=== PATIENT | male | born 1990 | race Caucasian/White ===

== ENCOUNTER 2022-01-20 20:37 | Emergency (ER) | payer OTHER, SELFPAY ==
[2022-01-20 20:50] VITALS: BP 126/85; PULSE 84; RESP 16; TEMP 36.4; O2SAT 98; BMI 24.4
[2022-01-20 21:56] VITALS: BP 119/72; PULSE 79; RESP 16; TEMP 36.4; O2SAT 98
--- NOTE | 2022-01-21 09:56 | ED.WOUNDLAC ---
HPI - Wound/Laceration General Date Seen: 01/21/22 Chief Complaint: Laceration/Wound Stated Complaint: LEFT EYE INJURY,HOCKEY PUCK Time Seen by Provider: 01/20/22 20:49 Source: patient and old records reviewed Mode of arrival: ambulatory Limitations: no limitations History of Present Illness HPI narrative: Patient is a 28-year-old gentleman presents with a significant other after he took a hockey puck to just above his left eye. He has no problems seeing out of his eye, but there is a laceration within his eyebrow. He was not wearing a shield, but tells me he usually wears a shield when he plays hockey. He feels that he might need stitches and that is why he is here today. Immunizations are up-to-date. Onset (ago): minute(s) (30) Location: face Place: other Patient tetanus UTD: Yes Context: accidental Associated symptoms: none Related Data Home Medications Medication Instructions Recorded Confirmed No Known Home Medications 01/20/22 01/20/22 Allergies Allergy/AdvReac Type Severity Reaction Status Date / Time No Known Drug Allergies Allergy Verified 01/20/22 20:53 Review of Systems Status of ROS: Reports: 6 or more systems reviewed and unremarkable except as noted in History and below [facility] Medical History (Updated 01/20/22 @ 21:45 by Erick Cooney MD) No significant past medical history Surgical History (Updated 01/20/22 @ 21:27 by Senthil Mahajan RN) No significant past surgical history Social History Smoking Status: Never smoker Do you use any of these nicotine containing products: None How often do you have a drink containing alcohol: never How often do you have six or more drinks on one occasion: Never AUDIT-C Alcohol total score: 0 Non-prescribed substance use: marijuana (any form) Exam Narrative: Exam Narrative: Healthy-looking gentleman in no apparent distress there is a vertical laceration of approximately 1 in that is gaping through the medial part of his left eyebrow. It does not continue into his upper eyelid. Some mild swelling is noted here. His nasal bone is intact. And straight. There is no evidence of any blood in either naris. No septal hematoma, his extraocular muscles are normal. Fundi appear normal his pupils are equal round reactive to light. Mid facial region reveals no tenderness to palpation. His neck is supple full range of motion is noted. Const: Vital Signs, click to edit/add: Vital Signs - 24 hr 01/20/22 20:50 01/20/22 21:56 Temperature 97.6 F 97.6 F Pulse Rate [Right Pulse Oximeter] 84 79 Respiratory Rate 16 16 Blood Pressure [Ri ght Upper Arm] 126/85 119/72 Pulse Oximetry 98 98 Course Vital Signs Vital signs: Initial Vital Signs Temperature 97.6 F 01/20/22 20:50 Temperature Source Temporal Artery Scan 01/20/22 20:50 Pulse Rate 84 01/20/22 20:50 Respiratory Rate 16 01/20/22 20:50 Blood Pressure 126/85 01/20/22 20:50 Blood Pressure Mean 98 01/20/22 20:50 Blood Pressure Position Sitting 01/20/22 20:50 Pulse Oximetry 98 01/20/22 20:50 Oxygen Delivery Method 01/20/22 20:50 Vital Signs Temperature 97.6 F 01/20/22 20:50 Pulse Rate 84 01/20/22 20:50 Respiratory Rate 16 01/20/22 20:50 Blood Pressure 126/85 01/20/22 20:50 Pulse Oximetry 98 01/20/22 20:50 Temperature 97.6 F 01/20/22 21:56 Pulse Rate 79 01/20/22 21:56 Respiratory Rate 16 01/20/22 21:56 Blood Pressure 119/72 01/20/22 21:56 Pulse Oximetry 98 01/20/22 21:56 MDM - Wound/Laceration MDM Narrative Medical decision making narrative: Laceration is repaired to the satisfaction on viewing of the significant other. We talked about bacitracin on the wound signs and symptoms infection and follow up if these occur. Sutures should come out in 6 days. I did talk to them about taking them out themselves. [facility]. Differential Diagnosis Differential diagnosis: Likely laceration and avulsion of skin Medical Records Attestation: I reviewed the patient's medical records. Discharge Plan Discharge Clinical Impression: Laceration Patient Disposition: Home w/ Parent or Adult Condition: Improved Instructions: Head Laceration (ED) Additional Instructions: Home rest daily bacitracin on the wound, signs of infection such as swelling, redness, fevers chills, he should come back to the ER. Otherwise sutures should come out in 6 days. I showed you had do this if you guys feel uncomfortable you go to the primary care clinic and have this done. Showering is encouraged but no swimming in the river or [place] Activity Level: No Restrictions Prescriptions: No Action No Known Home Medications 0RF Follow Up/Referrals: Provider,Not a Local [Primary Care Provider] - Stand Alone Forms: [facility] Info Instructions Procedures Laceration Laceration 1: Verification/time out: correct patient, correct site and correct procedure Name of person performing procedure: Erick Cooney Site: face Side (If applicable): left Size (cm): 3 Description: linear Depth: simple, single layer Local Anesthetic: lidocaine 1% and with epi Pre-repair: wound explored, irrigated extensively and deep structures intact Skin layer closed with: nylon Size (cm): 4-0 Number of sutures: 2 Technique: simple, interrupted Wound cleansing: soap Estimated blood loss (if any): none Conclusion: patient tolerated procedure
== END 2022-01-20 21:58 | disposition home or self-care (01) ==
PROVIDERS: Emergency Provider Family Medicine
DX: S01.112A Laceration without foreign body of left eyelid and periocular area, initial encounter (principal); W21.220A Struck by ice hockey puck, initial encounter
CPT/HCPCS: 12011; 99283

== ENCOUNTER 2023-07-26 14:48 | Outpatient (CLI) | payer OTHER, SELFPAY | END 2023-07-26 14:49 | disposition home or self-care (01) | PROVIDERS: PCP Family Medicine; Visit Provider Family Medicine | DX: M54.50 Low back pain, unspecified (principal); M51.27 Other intervertebral disc displacement, lumbosacral region; M47.897 Other spondylosis, lumbosacral region; M51.36 Other intervertebral disc degeneration, lumbar region; M54.17 Radiculopathy, lumbosacral region | CPT/HCPCS: 64483; J1100; Q9966 ==

== ENCOUNTER 2023-07-28 09:02 | Outpatient (CLI) | payer OTHER, SELFPAY ==
--- NOTE | 2023-07-28 09:15 | CRLHL7_ITS ---
For Patients: As a result of the Century Cures Act, medical imaging exams and procedure reports are released immediately into your electronic medical record. You may view this report before your referring provider. If you have questions, please contact your health care provider. INDICATION: Low back pain. TECHNIQUE : Lumbar spine MRI without contrast. The following sequences were obtained: Sagittal T1, T2 weighted and STIR sequences. Axial T1 and T2 weighted sequences. COMPARISON: Lumbar spine MRI from 09/21/2021. FINDINGS : Five lumbar type vertebral bodies, with the last fully formed disc space designated as L5-S1. Normal lumbar lordotic curve. No recent compression fracture or marrow replacing process. Lower cord/conus signal is normal. The conus terminates at a normal location. No intradural lesion. No extraspinal soft tissue abnormalities. Discs/Endplates: Mild disc height loss and disc desiccation L4-5 and L5-S1. Small Schmorl`s node deformities at L5 superior and inferior endplates. Remaining discs exhibit normal height and signal. Findings at individual levels as follows: T11-12: No spinal canal or neural foraminal stenosis. T12-L1: No spinal canal or neural foraminal stenosis. L1-2: No spinal canal or neural foraminal stenosis. L2-3: No spinal canal or neural foraminal stenosis. L3-4: No spinal canal or neural foraminal stenosis. L4-5: Minimal posterior disc bulge. No spinal canal or neural foraminal stenosis. L5-S1: A 13 millimeter right subarticular disc extrusion with 13 millimeters caudal migration below the interspace frankly impinges the traversing right S1 nerve root, compressing it against the posterior lateral wall of the spinal canal. Underlying mild disc bulge with contact of the left S1 nerve root. Mild right and [id number] left neural foraminal stenosis. Imaged SI joints: Within normal limits. Imaged sacrum: Within normal limits. IMPRESSION: 1. At L5-S1, a new right subarticular disc extrusion with caudal migration below the interspace frankly impinges the traversing right S1 nerve root. 2. Scattered spondylosis elsewhere without significant spinal canal/neural foraminal stenosis or impingement of neural structures. 3. No intradural pathology. Lower cord/conus and cauda equina nerve roots are normal. Dictated by German Mcwilliams MD @ 07/28/2023 10:59:06 AM (Electronically Signed)
== END 2023-07-28 09:03 | disposition home or self-care (01) ==
LOC: MRI 09:05
PROVIDERS: PCP Family Medicine; Visit Provider Family Medicine
DX: M54.50 Low back pain, unspecified (principal); M51.27 Other intervertebral disc displacement, lumbosacral region; M47.896 Other spondylosis, lumbar region; M51.26 Other intervertebral disc displacement, lumbar region; M54.16 Radiculopathy, lumbar region
CPT/HCPCS: 72148

== ENCOUNTER 2023-11-08 05:59 | Emergency (ER) | payer OTHER, SELFPAY ==
[2023-11-08 06:06] VITALS: BP 151/87; PULSE 75; RESP 18; TEMP 36.4; O2SAT 99; BMI 24.4
--- NOTE | 2023-11-08 06:12 | ED.BACK ---
HPI - Back Pain/Injury General Time Seen by Provider: 06:13 Date Seen: 11/08/23 Chief Complaint: Back Injury/Pain Stated Complaint: lower back pain Time Seen by Provider: 11/08/23 06:12 Source: patient Mode of arrival: ambulatory Limitations: no limitations History of Present Illness HPI Narrative: Ko is a very pleasant 33-year-old gentleman with a known history of back pain otherwise healthy who comes to the emergency room for evaluation of increasing back pain. Patient notes that he has dealt with back pain for years. He has previously seen Dr. Cooeny in the back clinic and had an MRI in July. He notes last night he picked up a door in the garage. It did not feel quite right and after that he has had increasing back pain throughout the night. Notes pain is radiating into his right buttock and down the back of his right leg and numbness is going into his calf. Initially a nursing reported that he had lost control of his bladder but in talking to the patient he had not gotten up to use the restroom all night because of the pain and when he had ago this morning he ?barely made it to the toilet?. He has not had loss of bowel. He denies numbness of the per perineal area. His most comfortable position is lying on his back with his knees flexed. Movement greatly increases his pain. He has taken oxycodone and ibuprofen at home. This has not helped. Naseem is supposed to be seeing Dr. Cooney in the back clinic on November 09. Denies fevers chills, allergy to Percocet is listed. States he got itchy in the hospital been when taking this. Notes that he is able to take oxycodone or Tylenol alone however. Last week completed of Medrol Dosepak. Related Data Previous Rx's Medication Instructions Recorded diazepam 5 mg tablet (Valium) 5 mg PO ONCE #2 tabs 07/21/23 gabapentin 300 mg capsule 300 mg PO TID #90 caps 07/21/23 methylprednisolone 4 mg tablets in See Rx Instructions PO PER PKG DIR 10/25/23 a dose pack #21 ea cyclobenzaprine 10 mg tablet 10 mg PO TID PRN muscle spasm #20 11/08/23 tabs hydrocodone 5 mg-acetaminophen 325 See Rx Instructions .Route 11/08/23 mg tablet .COMPLEX PRN pain #14 tabs methylprednisolone 4 mg tablets in See Rx Instructions PO .COMPLEX 11/08/23 a dose pack (Medrol (Geovanny)) #21 ea Allergies Allergy/AdvReac Type Severity Reaction Status Date / Time acetaminophen [From Percocet] Allergy Verified 07/26/23 15:09 oxycodone [From Percocet] Allergy Verified 07/26/23 15:09 Review of Systems Status of ROS: Reports: 10 or more systems reviewed and unremarkable except as noted in History and below [facility] Medical History Protrusion of lumbar intervertebral disc ?M51.26 - Other intervertebral disc displacement, lumbar region (ICD-10) No significant past medical history Surgical History No significant past surgical history Social History Smoking Status: Never smoker Do you use any of these nicotine containing products: None How often do you have a drink containing alcohol: never How often do you have six or more drinks on one occasion: Never AUDIT-C Alcohol total score: 0 Non-prescribed substance use: marijuana (any form) Exam Narrative: Exam Narrative: Naseem is examined in room 1. He is very tearful. Mentating normally. Speech is normal. Heart with a regular rate and rhythm and lungs are clear bilaterally. He has movement of the lower extremities in terms of great toe Mart and plantar flexion. DTRs at the knees 1+. At this time he is so uncomfortable that further exam is not possible. Const: Vital Signs, click to edit/add: Vital Signs - 24 hr 11/08/23 06:06 Temperature 97.6 F Pulse Rate [Pulse Oximeter] 75 Respiratory Rate 18 Blood Pressure [Ri ght Upper Arm] 151/87 H Pulse Oximetry 99 Oxygen Delivery Me thod Room Air Documenting provider has reviewed patient's vital signs: yes Course Course ED Course: Differential diagnosis includes but is not limited to disc protrusion suspect L5-S1, low back spasm, muscular strain, cauda equina. At this time he does have sensation of the lower extremities, no loss of perineal sensation and has not had loss of bowel or bladder control. While uncomfortable I do not see any red flag symptoms at this time but will need to re-examine patient once his pain is a bit better controlled. I was able to view MRI results from July of 2019 for lumbar spine which does show a right-sided L5-S1 disc protrusion with abutment of the right S1 nerve. At this time will proceed with morphine 10 mg IM, ketorolac 30 mg IM. I did ascertain that patient had an allergy to Percocet but he is able to take oxycodone. Unfortunately I do not think we will control his pain without the use of a narcotic. A check of the [facility] does not appear to show frequent narcotic prescriptions. Reevaluation(s) Reevaluation #1: Patient noted to be able to ambulate to restroom and is feeling much better after morphine and Toradol injection. Re-examination shows no tenderness to the low back. Hip flexion knee extension and flexion ankle in flexion extension all within normal limits. Decreased sensation on the lateral aspect of the right lower leg. Vital Signs Vital signs: Initial Vital Signs Temperature 97.6 F 11/08/23 06:06 Temperature Source Temporal Artery Scan 11/08/23 06:06 Pulse Rate 75 11/08/23 06:06 Respiratory Rate 18 11/08/23 06:06 Blood Pressure 151/87 H 11/08/23 06:06 Blood Pressure Mean 108 H 11/08/23 06:06 Blood Pressure Position Supine 11/08/23 06:06 Pulse Oximetry 99 11/08/23 06:06 Oxygen Delivery Method Room Air 11/08/23 06:06 Vital Signs Temperature 97.6 F 11/08/23 06:06 Pulse Rate 75 11/08/23 06:06 Respiratory Rate 18 11/08/23 06:06 Blood Pressure 151/87 H 11/08/23 06:06 Pulse Oximetry 99 11/08/23 06:06 Oxygen Delivery Method Room Air 11/08/23 06:06 Temperature 97.6 F 11/08/23 06:06 Pulse Rate 75 11/08/23 06:06 Respiratory Rate 18 11/08/23 06:06 Blood Pressure 151/87 H 11/08/23 06:06 Pulse Oximetry 99 11/08/23 06:06 Oxygen Delivery Method Room Air 11/08/23 06:06 Medications Administered Medications: Discontinued Medications Generic Name Dose Route Start Last Admin Trade Name Freq PRN Reason Stop Dose Admin Ketorolac Tromethamine 30 mg 05/14/24 06:24 11/08/23 06:32 Ketorolac 30 Mg/Ml Inj IM 11/08/23 06:25 30 mg ONCE ONE Administration Morphine Sulfate 10 mg 11/08/23 06:21 11/08/23 06:32 Morphine 10 Mg/Ml Inj IM 11/08/23 06:22 10 mg ONCE ONE Administration MDM - Back Pain/Injury MDM Narrative Medical decision making narrative: 1. L5-S1 disc protrusion with radiculitis-patient noted to have no deficit in strength motor. Sensation deficit on the lateral aspect of the right lower leg. At this time I am able to re-examine. No red flag symptoms at this time. Patient is feeling better. Do not feel that we need to repeat an MRI as this is likely an exacerbation of pre-existing lumbar disc extrusion abutting on the right S1 nerve root. Will restart Medrol Dosepak. Have also given patient prescription for Flexeril 10 mg p.o. t.i.d. p.r.n. 20. With no refills. Finally hand written prescription for [place] 5/325 1-2 tabs p.o. q.6 hours p.r.n. 14. With no refills. Previous prescription sent to [facility]. Patient is to return for loss of bowel or bladder control, worsening symptoms and as needed. Suggested use of stool softener as medications will likely make him constipated. 2. Disposition- home at this time with his mother. Anseem states he does feel comfortable going home. Have suggested icing in lieu of heat. Light activity only. Follow-up with back care physician in 48 hours as previously scheduled. Medical Records Attestation: I reviewed the patient's medical records. Imaging Data Lumbar MRI: Attestation: I have reviewed the pertinent imaging results. Radiologist's impression: Five lumbar type vertebral bodies, with the last fully formed disc space designated as L5-S1. Normal lumbar lordotic curve. No recent compression fracture or marrow replacing process. Lower cord/conus signal is normal. The conus terminates at a normal location. No intradural lesion. No extraspinal soft tissue abnormalities. Discs/Endplates: Mild disc height loss and disc desiccation L4-5 and L5-S1. Small Schmorl`s node deformities at L5 superior and inferior endplates. Remaining discs exhibit normal height and signal. Findings at individual levels as follows: T11-12: No spinal canal or neural foraminal stenosis. T12-L1: No spinal canal or neural foraminal stenosis. L1-2: No spinal canal or neural foraminal stenosis. L2-3: No spinal canal or neural foraminal stenosis. L3-4: No spinal canal or neural foraminal stenosis. L4-5: Minimal posterior disc bulge. No spinal canal or neural foraminal stenosis. L5-S1: A 13 millimeter right subarticular disc extrusion with 13 millimeters caudal migration below the interspace frankly impinges the traversing right S1 nerve root, compressing it against the posterior lateral wall of the spinal canal. Underlying mild disc bulge with contact of the left S1 nerve root. Mild right and [id number] left neural foraminal stenosis. Imaged SI joints: Within normal limits. Imaged sacrum: Within normal limits. IMPRESSION: 1. At L5-S1, a new right subarticular disc extrusion with caudal migration below the interspace frankly impinges the traversing right S1 nerve root. 2. Scattered spondylosis elsewhere without significant spinal canal/neural foraminal stenosis or impingement of neural structures. 3. No intradural pathology. Lower cord/conus and cauda equina nerve roots are normal. Discharge Plan Discharge Clinical Impression: Right lumbar radiculitis, Protrusion of lumbar intervertebral disc Patient Disposition: Home w/ Parent or Adult Condition: Improved Additional Instructions: Restart 2nd Medrol Dosepak which is sent to [facility] For discomfort Vicodin also known as hydrocodone may be used. Please use this sparingly, do not drive if using, and use a stool softener as this will probably cause constipation Flexeril is a muscle relaxant if your experiencing spasms. It is also sedating and should not be used if driving. Follow-up on as scheduled with Dr. Cooney Return to the emergency room for loss of bowel or bladder control, worsening symptoms and as needed. Prescriptions: New cyclobenzaprine 10 mg tablet 10 mg PO TID PRN (Reason: muscle spasm) Qty: 20 0RF hydrocodone-acetaminophen 5-325 mg tablet See Rx Instructions .ROUTE .COMPLEX PRN (Reason: pain) Qty: 14 0RF Rx Instructions: May use 1-2 tabs every 6 hours as needed for discomfort. methylprednisolone [Medrol (Geovanny)] 4 mg tablets,dose pack See Rx Instructions .ROUTE .COMPLEX Qty: 21 0RF Rx Instructions: for 6 days No Action diazepam [Valium] 5 mg tablet 5 mg PO ONCE Qty: 2 0RF Rx Instructions: Take 1 tablet a half hour prior to MRI. May repeat x1. Patient will need goat driver to/from MRI. gabapentin 300 mg capsule 300 mg PO TID Qty: 90 2RF Rx Instructions: Star with 1 capsule at night, increase in 3 days to 1 capsule morning and night, and then in 3 more days increase to 3 times a day. Sedation is the 1. Side effect, but this can also make you slightly dizzy. Safe to take with Tylenol and ibuprofen. methylprednisolone 4 mg tablets,dose pack See Rx Instructions PO PER PKG DIR Qty: 21 0RF Rx Instructions: PO PER PKG DIR Follow Up/Referrals: Nuno Sherman MD [Primary Care Provider] - Stand Alone Forms: [facility] Info Instructions
[2023-11-08] MEDS: MORPHINE 10 MG/ML inj IM (06:32)
[2023-11-08] MEDS: KETOROLAC 30 MG/ML inj IM (06:32)
[2023-11-08 08:08] VITALS: BP 150/80; PULSE 68; RESP 18; O2SAT 99
== END 2023-11-08 08:10 | disposition home or self-care (01) ==
PROVIDERS: Emergency Provider Family Medicine; PCP Family Medicine
DX: M54.16 Radiculopathy, lumbar region (principal); M51.26 Other intervertebral disc displacement, lumbar region
CPT/HCPCS: 96372; 99284; J1885; J2270

== ENCOUNTER 2024-01-20 14:06 | Outpatient (CLI) | payer OTHER, SELFPAY ==
--- NOTE | 2024-01-20 14:30 | CRLHL7_ITS ---
For Patients: As a result of the Century Cures Act, medical imaging exams and procedure reports are released immediately into your electronic medical record. You may view this report before your referring provider. If you have questions, please contact your health care provider. INDICATION: Lumbar stenosis. COMPARISON: 07/28/2023. TECHNIQUE: Sagittal T1, T2, and STIR sequences. Axial T1 and T2 weighted sequences. FINDINGS: Normal vertebral body alignment. No fractures. No vertebral body loss of height. No spondylolisthesis. No ligament injury. No suspicious osseous lesions. Normal conus terminates at L2. T12-L1 L1-2 L2-3: No spinal canal neural foraminal narrowing. L3-4: No spinal canal or neural foraminal narrowing. L4-5: Mild disc degeneration and posterior disc bulge. No narrowing of spinal canal. No neural foraminal narrowing. L5-S1: Disc degeneration and loss disc height. Posterior disc bulge. Compared to the previous exam, interval decrease in size of a right paracentral disc extrusion which canal measures approximately 4 mm in diameter with 4 mm of caudal migration (best appreciated on series 2, image 7). The extruded disc again contacts and may irritate the traversing right S1 nerve root. No impingement of the traversing left S1 nerve root. Facet arthropathy results in mild to moderate narrowing of bilateral foramina. Normal visualized SI joints. IMPRESSION: 1. Normal alignment. No fractures. 2. Lumbar spondylosis 3. At L5-S1, disc degeneration. Posterior disc bulge. Interval decrease in size of a previously noted right paracentral disc extrusion. Contact and possible irritation of the traversing right S1 nerve root. Etdp-ri-[id number] narrowing of the bilateral neural foramina. 4. No spinal canal or neural foraminal narrowing at the remaining levels Dictated by Nikolai Renee MD @ 01/21/2024 2:55:55 PM (Electronically Signed)
== END 2024-01-20 14:07 | disposition home or self-care (01) ==
LOC: MRI 14:07
PROVIDERS: PCP Family Medicine; Visit Provider Orthopaedic Surgery Orthopaedic Surgery of the Spine
DX: M48.062 Spinal stenosis, lumbar region with neurogenic claudication (principal); M51.37 Other intervertebral disc degeneration, lumbosacral region
CPT/HCPCS: 72148

== ENCOUNTER 2024-02-26 11:42 | Emergency (ER) | payer OTHER, SELFPAY ==
--- NOTE | 2024-02-26 11:43 | ED.GENADULT ---
HPI - General Adult General Date Seen: 02/26/24 Chief complaint: Back Injury/Pain Stated complaint: Back pain following surgery Time Seen by Provider: 02/26/24 11:43 History of Present Illness HPI narrative: 34-year-old male with history of chronic back pain and S1 lumbar radiculopathy. He had an MRI of his lumbar spine in 2021 that showed an L5-S1 disc extrusion with impingement on the right S1 nerve root. He had had some ongoing pain and radicular symptoms. He follows with Dr. Cooney in the spine clinic. According to his most recent visit from the Spine Clinic in October he had had an epidural steroid injection last winter with temporary improvement. He had then been in the ER in October with a significant flare of back pain and radicular pain. According to [facility] is a notes from October, they were going to refer to Spine surgery, Dr. Naseem Briceno (O). He indicates that he underwent back surgery on February 08, just over 2 weeks ago. The surgery was performed at by Dr. Briceno from [facility]. It sounds like it was a small micro diskectomy. He had been healing well. He received a prescription for about 10 tablets of oxycodone for postop pain in the been doing well. He did take all of his oxycodone in the 1st few days after surgery but has been doing well since then and not needing any other pain killers. He had also been on gabapentin for several months for his nerve related pain preoperatively but also does not have that anymore. He had been feeling better but on Tuesday he tripped and sneezed and his back pain is flaring up since then. He had called his surgeon's office on Tuesday when he 1st re-injured his back. His surgeon and surgical team wore out of the office and he was told to call back on Tuesday if he was still having pain. This morning he was having a bowel movement (passages of stool was normal, no rectal pain, no incontinence) and after stooling he twisted to clean his bottom with toilet paper and in the active twisting her sick created a significant flare of pain. He is having pain in his low back that radiates down his right buttock, right posterior hamstring all way down into his right calf and right foot. He does have some chronic mild numbness affecting the 4th and 5th toes on the right foot, that even had been persistent since surgery, but now is entire right foot is feeling numb. No fever or chills. No bleeding from his incision. No redness or swelling around his incision . Urination has been normal. Related Data Previous Rx's ?Medication ?Instructions ?Recorded diazepam 5 mg tablet (Valium) 5 mg PO ONCE #2 tabs 07/21/23 hydrocodone 5 mg-acetaminophen 325 See Rx Instructions .Route 11/08/23 mg tablet .COMPLEX PRN pain #14 tabs methylprednisolone 4 mg tablets in See Rx Instructions PO .COMPLEX 11/08/23 a dose pack (Medrol (Geovanny)) #21 ea gabapentin 300 mg capsule 300 mg PO TID #90 caps 11/10/23 cyclobenzaprine 10 mg tablet 10 mg PO TID PRN muscle spasm #20 12/01/23 tabs methylprednisolone 4 mg tablets in See Rx Instructions PO PER PKG DIR 12/01/23 a dose pack #21 ea gabapentin 300 mg capsule 300 mg PO BID #14 caps 02/26/24 methylprednisolone 4 mg tablets in See Rx Instructions PO .COMPLEX 02/26/24 a dose pack (Medrol (Geovanny)) #21 ea oxycodone 5 mg capsule 5 - 10 mg (1 - 2 x 5 mg) PO Q6H 02/26/24 PRN pain #14 caps oxycodone 5 mg tablet 5 - 10 mg (1 - 2 x 5 mg) PO Q6H 02/26/24 PRN pain #20 tabs PFSH PFSH Medical History Protrusion of lumbar intervertebral disc ?M51.26 - Other intervertebral disc displacement, lumbar region (ICD-10) No significant past medical history Surgical History No significant past surgical history Social History Smoking Status: Never smoker Do you use any of these nicotine containing products: None How often do you have a drink containing alcohol: never How often do you have six or more drinks on one occasion: Never AUDIT-C Alcohol total score: 0 Non-prescribed substance use: marijuana (any form) Exam Narrative: Exam Narrative: Constitutional: Appears well-developed and well-nourished. Alert. Uncomfortable and is standing at his bedside because that is his position of greatest comfort. When standing he often bends forward and sometimes tries to bend his right knee to try to relieve his back pain and right leg pain. He is leaning on his cane for balance. He is uncomfortable but nontoxic HENT: Head: Atraumatic. Nose: Nose normal. Mouth/Throat: Oral mucosa is clear and moist. no trismus. Eyes: Conjunctivae normal. EOM normal. Pupils equal, round, and reactive to light. No scleral icterus. Neck: Normal range of motion. Neck supple. No tracheal deviation present. Cardiovascular: Normal rate, regular rhythm. No gallop. No friction rub. No murmur heard. Symmetric DP artery pulses Pulmonary/Chest: Effort normal. No stridor. No respiratory distress. No wheezes. No rales. No rhonchi . Abdominal: Soft.No distension. No mass. No tenderness. No rebound. No guarding. Musculoskeletal: Inspection of low back is normal. He does have a healing incision with Steri-Strips in place. No signs of any purulent drainage, bleeding. No surrounding erythema. No point tenderness or swelling in that area. No midline step-off or crepitus of the lumbar spine and no pelvic crepitus or tenderness. RUE: Normal range of motion. No tenderness. No deformity LUE: Normal range of motion. No tenderness. No deformity RLE: Normal range of motion. No edema. No tenderness. No deformity LLE: Normal range of motion. No edema. No tenderness. No deformity Lymph: No signs of redness in the leg or any signs of ascending lymphangitis or infection. Neurological: Alert and oriented to person, place, and time. Normal strength. CN II-VII intact. No sensory deficit. GCS eye subscore is 4. GCS verbal subscore is 5. GCS motor subscore is 6. Normal coordination Sensory: Normal light touch sensation bilaterally on the anteromedial thigh (L3), medial malleolus (L4). . He does have paresthesias involving the right dorsal 1st webspace and lateral malleolus. Strength: 5/5 strength hip flexors (L3) on the right and left 5/5 strength in the quadriceps (L4) on the right and left 5/5 strength in the tibialis anterior 5/5 strength in the EHL (L5) on the right and left 5/5 strength in the gastrocnemius (S1) on the right and left 5/5 strength in the hamstring on the right and left He is too uncomfortable to participate in straight leg raise He is able to ambulate. He has his cane in his hand but is able to ambulate without using it for balance. No footdrop.. Skin: Skin is warm and dry. No rash noted. No pallor. Normal capillary refill. Psychiatric: Normal mood. Normal affect. Const: Vital Signs, click to edit/add: Vital Signs - 24 hr 02/26/24 11:45 02/26/24 13:34 Temperature 97.8 F Pulse Rate [Right Pulse Oximeter] 96 83 Respiratory Rate 18 Blood Pressure [Ri ght Upper Arm] 161/78 H 143/88 H Pulse Oximetry 97 95 Oxygen Delivery Me thod Room Air Room Air Course Course ED Course: Recheck-1:10 p.m.. Still uncomfortable. Says slight improvement after initial round of meds but still is leaning on his cane next to the bed. Was not comfortable laying down. Needs additional analgesia. Airway and breathing are patent. Mental status normal. Additional Dilaudid ordered. Vital Signs Vital signs: Initial Vital Signs Temperature 97.8 F 02/26/24 11:45 Temperature Source Temporal Artery Scan 02/26/24 11:45 Pulse Rate 96 02/26/24 11:45 Respiratory Rate 18 02/26/24 11:45 Blood Pressure 161/78 H 02/26/24 11:45 Blood Pressure Mean 105 02/26/24 11:45 Blood Pressure Position Sitting 02/26/24 11:45 Pulse Oximetry 97 02/26/24 11:45 Oxygen Delivery Method Room Air 02/26/24 11:45 Vital Signs Temperature 97.8 F 02/26/24 11:45 Pulse Rate 96 02/26/24 11:45 Respiratory Rate 18 02/26/24 11:45 Blood Pressure 161/78 H 02/26/24 11:45 Pulse Oximetry 97 02/26/24 11:45 Oxygen Delivery Method Room Air 02/26/24 11:45 Temperature 97.8 F 02/26/24 11:45 Pulse Rate 83 02/26/24 13:34 Respiratory Rate 18 02/26/24 11:45 Blood Pressure 143/88 H 02/26/24 13:34 Pulse Oximetry 95 02/26/24 13:34 Oxygen Delivery Method Room Air 02/26/24 13:34 Medications Administered Medications: Discontinued Medications Generic Name Dose Route Start Last Admin Trade Name Ulises PRN Reason Stop Dose Admin Gabapentin 300 mg 02/26/24 12:09 02/26/24 12:43 Gabapentin 300 Mg Capsule PO 02/26/24 12:10 300 mg ONCE ONE Administration Hydromorphone HCl 1 mg 02/26/24 12:08 02/26/24 12:33 Hydromorphone 0.5 Mg/0.5 Ml Inj IVP 02/26/24 12:09 1 mg ONCE ONE Administration Hydromorphone HCl 1 mg 02/26/24 13:20 02/26/24 13:26 Hydromorphone 0.5 Mg/0.5 Ml Inj IVP 02/26/24 13:21 1 mg ONCE ONE Administration Methylprednisolone Sodium Succinate 125 mg 02/26/24 12:08 02/26/24 12:28 Methylprednisolone Sod Succ 62.5 Mg/Ml (125) IVP 02/26/24 12:09 125 mg ONCE ONE Administration Ondansetron HCl 4 mg 02/26/24 12:08 02/26/24 12:20 Ondansetron 2 Mg/Ml Inj IVP 02/26/24 12:09 4 mg ONCE ONE Administration Medical Decision Making MDM Narrative Medical decision making narrative: This patient presented with back pain radiating down his right leg associated with numbness in his right foot. He has a longstanding history of a known L5-S1 disc herniation with impingement on the right S1 nerve root. He does have some chronic numbness in his foot from that. He had been dealing with the pain for quite some time before finally having surgery (done by Dr. Briceno from [facility] at [facility] about 2 weeks ago). He had been healing well but then re-injured his back when he tripped 2 days ago and then further re-injured it this morning when he was twisting his torso on the toilet. Broad differential considered. The patient did not sustain any trauma, therefore x-rays are not necessary due to the low likelihood of fracture or subluxation. I am concerned that he probably has re-exacerbate is healing disc and has symptoms of lumbar radiculopathy going down his right leg. The patient has not had a fever, saddle/perineal anesthesia, bilateral foot numbness, or bowel or bladder dysfunction. There is no clinical evidence of cauda equina syndrome, discitis, spinal/epidural space hematoma or epidural abscess. He may need a expeditious MRI to re-evaluate the anatomy and find of the situation. MRI is not available here in the ER at [facility] this weekend. At this point I do not think this is a neuro surgical emergency requiring transfer to a different hospital for immediate neuro imaging. However he will need close follow-up with his spine surgeon, by Tuesday. Pain has improved with interventions in the emergency department. The patient will be discharged with pain medications to use as directed. Ice or heat to the back and stretching exercises. No heavy lifting, bending or twisting. Return if increasing pain, numbness, weakness, or bowel or bladder dysfunction. The patient was advised to schedule follow-up with their primary doctor within 2-3 days to re-assess symptoms. Return precautions reviewed and questions answered. Prescriptions for gabapentin and oxycodone. Opiate and sedation precautions reviewed. We initially sent his prescriptions to [facility] (listed this is chosen pharmacy in the computer) but he actually wanted him to go to [facility]. I sent a separate prescription for oxycodone to [facility]. He has other at [facility] were called in and change by verbal order. Discharge Plan Discharge Clinical Impression: Lumbosacral radiculopathy at S1 Patient Disposition: Home, Self-Care Condition: Stable Instructions: Lumbar Radiculopathy (ED) Additional Instructions: As we discussed, please follow-up with your back surgeon or the back clinic by Tuesday for recheck. If you have worsening symptoms this weekend such as worsening numbness or weakness in your leg, inability to urinate or disturbance of bladder or bowel function, high fever, redness or swelling around your incision, or any concerns come back to the ER right away. Use the steroid (Medrol Dosepak) for the next few days to try to help this heal. Use the gabapentin hand pain killers if needed. Use caution with these medications because they do cause dizziness, drowsiness, constipation, and can be addictive. Do not drive for 6 hours after taking pain killers. Prescriptions: New oxycodone 5 mg capsule 5 - 10 mg PO Q6H PRN (Reason: pain) Qty: 14 0RF gabapentin 300 mg capsule 300 mg PO BID Qty: 14 0RF methylprednisolone [Medrol (Geovanny)] 4 mg tablets,dose pack See Rx Instructions .ROUTE .COMPLEX Qty: 21 0RF Rx Instructions: for 6 days oxycodone 5 mg tablet 5 - 10 mg PO Q6H PRN (Reason: pain) Qty: 20 0RF No Action diazepam [Valium] 5 mg tablet 5 mg PO ONCE Qty: 2 0RF Rx Instructions: Take 1 tablet a half hour prior to MRI. May repeat x1. Patient will need vibratory pile driver to/from MRI. gabapentin 300 mg capsule 300 mg PO TID Qty: 90 2RF Rx Instructions: Star with 1 capsule at night, increase in 3 days to 1 capsule morning and night, and then in 3 more days increase to 3 times a day. Sedation is the 1. Side effect, but this can also make you slightly dizzy. Safe to take with Tylenol and ibuprofen. hydrocodone-acetaminophen 5-325 mg tablet See Rx Instructions .ROUTE .COMPLEX PRN (Reason: pain) Qty: 14 0RF Rx Instructions: May use 1-2 tabs every 6 hours as needed for discomfort. methylprednisolone [Medrol (Geovanny)] 4 mg tablets,dose pack See Rx Instructions .ROUTE .COMPLEX Qty: 21 0RF Rx Instructions: for 6 days methylprednisolone 4 mg tablets,dose pack See Rx Instructions PO PER PKG DIR Qty: 21 0RF Rx Instructions: PO PER PKG DIR cyclobenzaprine 10 mg tablet 10 mg PO TID PRN (Reason: muscle spasm) Qty: 20 0RF Follow Up/Referrals: Nuno Sherman MD [Staff Physician] - Stand Alone Forms: [employer] Info Instructions
[2024-02-26 11:45] VITALS: BP 161/78; PULSE 96; RESP 18; TEMP 36.6; O2SAT 97; BMI 23.7
[2024-02-26] MEDS: ONDANSETRON 2 MG/ML inj 4 MG IVP (12:20)
[2024-02-26] MEDS: METHYLPREDNISOLONE SOD SUCC 62.5 MG/ML (125) 125 MG IVP (12:28)
[2024-02-26] MEDS: HYDROmorphone 0.5 mg/0.5 ml inj 1 MG IVP ×2 (12:33→13:26)
[2024-02-26] MEDS: GABAPENTIN 300 MG CAPSULE PO (12:43)
[2024-02-26 13:34] VITALS: BP 143/88; PULSE 83; O2SAT 95
== END 2024-02-26 14:18 | disposition home or self-care (01) ==
PROVIDERS: Emergency Provider Emergency Medicine; PCP Nurse Practitioner Family
DX: M54.17 Radiculopathy, lumbosacral region (principal)
CPT/HCPCS: 96374; 96375; 99283; A9270; J1170; J2405; J2919

== ENCOUNTER 2024-02-27 04:11 | Emergency (ER) | payer OTHER, SELFPAY ==
[2024-02-27 04:15] VITALS: BP 134/116; PULSE 120; RESP 18; TEMP 36.8; O2SAT 98; BMI 25.1
--- NOTE | 2024-02-27 04:26 | ED_ITS ---
HPI - General Adult General Chief complaint: Back Injury/Pain Stated complaint: back pain Time Seen by Provider: 02/27/24 04:16 Source: patient and family Mode of arrival: ambulatory Limitations: no limitations History of Present Illness HPI narrative: 34-year-old male presenting today with vomiting. Patient was seen in our ER within the last 24 hours for back pain he was treated with IV Dilaudid and methyl prednisolone. He was sent home with oxycodone and gabapentin. He was also sent home with steroids which he has started since he had an IV dose in the ER. He states that he started vomiting approximately 2 hours ago and every time he has a vomiting episode his back pain is unbearable. He feels sweaty and has hot and cold flashes. He denies any sick contacts, no fevers. He denies any urinary symptoms such as frequency, urgency or dysuria. He denies any diarrhea or constipation. No loss of bowel or bladder function. He has increasing bowls of pain when he vomits otherwise his back pain is unchanged. The no changes in his symptoms of radiculopathy. Patient does have chronic back pain. He had what sounds like a micro diskectomy approximately 2 weeks ago. He denies any swelling or skin changes of his back. Related Data Previous Rx's ?Medication ?Instructions ?Recorded diazepam 5 mg tablet (Valium) 5 mg PO ONCE #2 tabs 07/21/23 hydrocodone 5 mg-acetaminophen 325 See Rx Instructions .Route 11/08/23 mg tablet .COMPLEX PRN pain #14 tabs methylprednisolone 4 mg tablets in See Rx Instructions PO .COMPLEX 11/08/23 a dose pack (Medrol (Geovanny)) #21 ea gabapentin 300 mg capsule 300 mg PO TID #90 caps 11/10/23 cyclobenzaprine 10 mg tablet 10 mg PO TID PRN muscle spasm #20 12/01/23 tabs methylprednisolone 4 mg tablets in See Rx Instructions PO PER PKG DIR 12/01/23 a dose pack #21 ea gabapentin 300 mg capsule 300 mg PO BID #14 caps 02/26/24 methylprednisolone 4 mg tablets in See Rx Instructions PO .COMPLEX 02/26/24 a dose pack (Medrol (Geovanny)) #21 ea oxycodone 5 mg capsule 5 - 10 mg (1 - 2 x 5 mg) PO Q6H 02/26/24 PRN pain #14 caps oxycodone 5 mg tablet 5 - 10 mg (1 - 2 x 5 mg) PO Q6H 02/26/24 PRN pain #20 tabs Allergies Allergy/AdvReac Type Severity Reaction Status Date / Time No Known Drug Allergies Allergy Verified 02/27/24 04:19 Review of Systems Status of ROS: Reports: 10 or more systems reviewed and unremarkable except as noted in History and below PFSH [facility] Medical History Protrusion of lumbar intervertebral disc ?M51.26 - Other intervertebral disc displacement, lumbar region (ICD-10) No significant past medical history Surgical History No significant past surgical history Social History Smoking Status: Never smoker Do you use any of these nicotine containing products: None How often do you have a drink containing alcohol: never How often do you have six or more drinks on one occasion: Never AUDIT-C Alcohol total score: 0 Non-prescribed substance use: marijuana (any form) Exam Narrative: Exam Narrative: Well-nourished well-developed patient, uncomfortable. Alert and oriented. Answers questions appropriately. Mood and affect are appropriate. Thoughts are goal oriented and rational. No tangential or magical thinking noted. Patient speaks in full sentences without needing to catch his breath. HEENT: Normocephalic atraumatic. Pupils are equally round reactive to light. Extraocular muscles are intact. Conjunctivae are moist without any icterus noted. Moist mucous membranes. Cardiovascular: Heart is regular rate and rhythm S1 and S2 are present without any murmurs. Lungs: Clear to auscultation bilaterally no wheezes rhonchi or rales are appreciated. Patient takes deep breaths without any discomfort. Abdomen: Soft and nontender nondistended with normal bowel sounds. No guarding or rebound. No masses or organomegaly appreciated. Extremities: Bilateral lower extremities are without edema. Skin: Well perfused without any obvious rashes. Back has a healing incision without evidence of infection. Const: Vital Signs, click to edit/add: Vital Signs - 24 hr 02/27/24 04:15 02/27/24 05:13 Temperature 98.2 F Pulse Rate [Right Pulse Oximeter] 120 H 80 Respiratory Rate 18 16 Blood Pressure [Ri ght Upper Arm] 134/116 H 129/78 Pulse Oximetry 98 96 Oxygen Delivery Me thod Room Air Room Air Course Course ED Course: I discussed patient's goals today. He states that he would like to stop vomiting and does not want to have any more pain medication at this time. Therefore we did go ahead and start an IV, normal saline was ordered as well as Zofran. Also ordered basic blood work and a COVID test as COVID has been presenting with vomiting recently. Have blood work was unremarkable. White cell count slightly elevated. After being here for approximately 45 minutes patient did not have any vomiting episodes we did request pain medication. Therefore 1 mg of Dilaudid IV was given. Patient was feeling significantly better and ready for discharge. Vital Signs Vital signs: Initial Vital Signs Temperature 98.2 F 02/27/24 04:15 Temperature Source Temporal Artery Scan 02/27/24 04:15 Pulse Rate 120 H 02/27/24 04:15 Pulse Rhythm Regular 02/27/24 04:15 Pulse Strength 3+ Normal 02/27/24 04:15 Respiratory Rate 18 02/27/24 04:15 Blood Pressure 134/116 H 02/27/24 04:15 Blood Pressure Mean 122 H 02/27/24 04:15 Blood Pressure Position Sitting 02/27/24 04:15 Pulse Oximetry 98 02/27/24 04:15 Oxygen Delivery Method Room Air 02/27/24 04:15 Vital Signs Temperature 98.2 F 02/27/24 04:15 Pulse Rate 120 H 02/27/24 04:15 Respiratory Rate 18 02/27/24 04:15 Blood Pressure 134/116 H 02/27/24 04:15 Pulse Oximetry 98 02/27/24 04:15 Oxygen Delivery Method Room Air 02/27/24 04:15 Temperature 98.2 F 02/27/24 04:15 Pulse Rate 80 02/27/24 05:13 Respiratory Rate 16 02/27/24 05:13 Blood Pressure 129/78 02/27/24 05:13 Pulse Oximetry 96 02/27/24 05:13 Oxygen Delivery Method Room Air 02/27/24 05:13 Medications Administered Medications: Generic Name Dose Route Start Last Admin Trade Name Freq PRN Reason Stop Dose Admin Sodium Chloride 1,000 mls @ 1,000 mls/hr 02/27/24 04:30 02/27/24 05:10 0.9 % Sodium Chloride 1000 Ml IV 02/27/24 05:29 Infused .Q1H LUISITO Infusion Discontinued Medications Generic Name Dose Route Start Last Admin Trade Name Ulises PRN Reason Stop Dose Admin Hydromorphone HCl 1 mg 02/27/24 05:02 02/27/24 05:07 Hydromorphone 0.5 Mg/0.5 Ml Inj IVP 02/27/24 05:03 1 mg ONCE ONE Administration Ondansetron HCl 4 mg 02/27/24 04:24 02/27/24 04:33 Ondansetron 2 Mg/Ml Inj IVP 02/27/24 04:25 4 mg ONCE ONE Administration Medical Decision Making MDM Narrative Medical decision making narrative: 34-year-old male with low back pain, vomiting. Patient will continue with his medications that he going to earlier today. We will send home with Lady to take as needed. He will follow up with his care team. Lab Data Lab results reviewed: Yes I reviewed the patient's lab results Labs: Lab Results 02/27/24 Range/Units 04:30 WBC 13.47 H (4.50-11.00) K/uL RBC 4.57 (4.30-5.90) m/uL Hgb 14.1 (13.5-17.5) gm/dL Hct 40.1 (37.0-53.0) % MCV 88 (80-100) fL MCH 31 (26-34) pg MCHC 35 (32-36) gm/dL RDW Coeff of Glenny 11.7 (11.5-15.5) % Plt Count 271 (140-440) K/uL Neut % (Auto) 87.4 H (42.0-72.0) % Lymph % (Auto) 7.9 L (20-44) % Sac % (Auto) 4.2 (0.0-11.0) % Eos % (Auto) 0.1 (0.0-7.0) % Baso % (Auto) 0.0 (0.0-3.0) % Neut # (Auto) 11.80 H (1.7-7.0) K/uL Lymph # (Auto) 1.10 (0.90-2.90) K/uL Sac # (Auto) 0.60 (0.00-0.90) K/UL Eos # (Auto) 0.00 (0.00-0.50) K/uL Baso # (Auto) 0.00 (0.00-0.30) K/uL Abs Immat Gran (auto) 0.10 (0.00-0.30) K/uL Imm/Tot Granulo (auto) 0.4 % Sodium 136 (135-149) mmol/L Potassium 3.8 (3.6-5.1) mmol/L Chloride 102 (96-114) mmol/L Carbon Dioxide 26 (20-32) mmol/L Anion Gap 8 (7-15) mEq/L BUN 16 (5-24) mg/dL Creatinine 0.7 (0.5-1.5) mg/dL Estimated Creat Clear 141.14 Estimated GFR 122 ml/min Glucose 146 H (60-115) mg/dL Calcium 9.7 (8.4-10.6) mg/dL Total Bilirubin 0.6 (0.1-1.5) mg/dL Direct Bilirubin 0.2 (0.0-0.5) mg/dL AST 23 (12-35) U/L ALT 18 (4-50) U/L Alkaline Phosphatase 60 (40-150) U/L Total Protein 7.3 (6.0-8.3) g/dL Albumin 4.7 (3.3-5.0) g/dL SARS-CoV-2 (PCR) Negative SARS-CoV-2 (Negative) Influenza Type A (PCR) Negative PCR FLU A (Negative) Influenza Type B (PCR) Negative PCR FLU B (Negative) Discharge Plan Discharge Clinical Impression: Vomiting, Back pain Patient Disposition: Home, Self-Care Condition: Improved Additional Instructions: [facility] (medication for nausea/vomiting[facility] Follow-up with your surgical team on Tuesday. Return to the ER if you have an inability to urinate, lose bowel function, or develop a fever. Prescriptions: No Action diazepam [Valium] 5 mg tablet 5 mg PO ONCE Qty: 2 0RF Rx Instructions: Take 1 tablet a half hour prior to MRI. May repeat x1. Patient will need dedicated intermodal truck driver to/from MRI. gabapentin 300 mg capsule 300 mg PO TID Qty: 90 2RF Rx Instructions: Star with 1 capsule at night, increase in 3 days to 1 capsule morning and night, and then in 3 more days increase to 3 times a day. Sedation is the 1. Side effect, but this can also make you slightly dizzy. Safe to take with Tylenol and ibuprofen. hydrocodone-acetaminophen 5-325 mg tablet See Rx Instructions .ROUTE .COMPLEX PRN (Reason: pain) Qty: 14 0RF Rx Instructions: May use 1-2 tabs every 6 hours as needed for discomfort. methylprednisolone [Medrol (Geovanny)] 4 mg tablets,dose pack See Rx Instructions .ROUTE .COMPLEX Qty: 21 0RF Rx Instructions: for 6 days oxycodone 5 mg capsule 5 - 10 mg PO Q6H PRN (Reason: pain) Qty: 14 0RF gabapentin 300 mg capsule 300 mg PO BID Qty: 14 0RF methylprednisolone [Medrol (Geovanny)] 4 mg tablets,dose pack See Rx Instructions .ROUTE .COMPLEX Qty: 21 0RF Rx Instructions: for 6 days oxycodone 5 mg tablet 5 - 10 mg PO Q6H PRN (Reason: pain) Qty: 20 0RF methylprednisolone 4 mg tablets,dose pack See Rx Instructions PO PER PKG DIR Qty: 21 0RF Rx Instructions: PO PER PKG DIR cyclobenzaprine 10 mg tablet 10 mg PO TID PRN (Reason: muscle spasm) Qty: 20 0RF Follow Up/Referrals: Dasha Loera, BREA, PARK MAINTENANCE TECHNICIAN [Primary Care Provider] - Stand Alone Forms: My[facility] Info Instructions
[2024-02-27] MEDS: ONDANSETRON 2 MG/ML inj 4 MG IVP (04:33)
[2024-02-27] MEDS: 0.9 % SODIUM CHLORIDE 1000 ml 1,000 ML IV (04:33)
[2024-02-27 04:38] LABS: Eosinophils Percent Auto 0.1 % (0.0-7.0); Hematocrit 40.1 % (37.0-53.0); Hemoglobin* 14.1 gm/dL (13.5-17.5); Immature Granulocytes Pct Auto 0.4 %; Lymphocytes Percent Auto 7.9 % (20-44); Mean Corpuscular HGB Conc 35 gm/dL (32-36); Mean Corpuscular Hemoglobin 31 pg (26-34); Mean Corpuscular Volume 88 fL (80-100); Monocytes Percent Auto 4.2 % (0.0-11.0); Neutrophils Percent Auto 87.4 % (42.0-72.0); Platelet Count* 271 K/uL (140-440); RDW Coefficient of Variation % 11.7 % (11.5-15.5); Red Blood Count 4.57 m/uL (4.30-5.90); White Blood Count* 13.47 K/uL (4.50-11.00)
[2024-02-27 04:39] LABS: Slide Review Reflex No
[2024-02-27 05:00] LABS: Albumin* 4.7 g/dL (3.3-5.0); Chloride* 102 mmol/L (96-114); Sodium* 136 mmol/L (135-149)
[2024-02-27 05:01] LABS: Potassium* 3.8 mmol/L (3.6-5.1)
[2024-02-27 05:03] LABS: Alanine Aminotransferase* 18 U/L (4-50); Alkaline Phosphatase* 60 U/L (40-150); Bilirubin Direct* 0.2 mg/dL (0.0-0.5); Bilirubin Total* 0.6 mg/dL (0.1-1.5); Creatinine* 0.7 mg/dL (0.5-1.5); Est. Creatinine Clearance* 141.14; Estimated Glomerular Filt Rate 122 ml/min; Total Protein* 7.3 g/dL (6.0-8.3)
[2024-02-27 05:04] LABS: Anion Gap 8 mEq/L (7-15); Blood Urea Nitrogen* 16 mg/dL (5-24); Calcium* 9.7 mg/dL (8.4-10.6); Carbon Dioxide* 26 mmol/L (20-32); Glucose* 146 mg/dL (60-115)
[2024-02-27] MEDS: HYDROmorphone 0.5 mg/0.5 ml inj 1 MG IVP (05:07)
[2024-02-27 05:11] LABS: Aspartate Amino Transferase* 23 U/L (12-35)
[2024-02-27 05:13] VITALS: BP 129/78; PULSE 80; RESP 16; O2SAT 96
[2024-02-27 05:14] LABS: PCR FLU A Negative PCR FLU A (Negative); PCR FLU B Negative PCR FLU B (Negative); SARS PCR* Negative SARS-CoV-2 (Negative)
== END 2024-02-27 05:35 | disposition home or self-care (01) ==
PROVIDERS: Emergency Provider Family Medicine; PCP Nurse Practitioner Family
DX: R11.10 Vomiting, unspecified (principal); M54.9 Dorsalgia, unspecified
CPT/HCPCS: 36415; 80048; 80076; 85025; 87631; 96374; 96375; 99283; 99284; J1170; J2405; J7030

== ENCOUNTER 2024-05-02 20:28 | Emergency (ER) | payer OTHER, SELFPAY ==
[2024-05-02 20:35] VITALS: BP 154/84; PULSE 89; RESP 20; TEMP 36.7; O2SAT 99; BMI 23.7
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
[2024-05-02 21:00] VITALS: O2SAT 99
[2024-05-02] MEDS: CYCLOBENZAPRINE HCL 10 MG TABLET PO (21:04)
[2024-05-02] MEDS: HYDROmorphone 0.5 mg/0.5 ml inj 1 MG IM (21:04)
[2024-05-02] MEDS: ONDANSETRON ODT 4 MG TAB PO (21:04)
[2024-05-02] MEDS: OXYCODONE 5 MG TABLET PO (21:57)
[2024-05-02 22:56] VITALS: BP 154/84; PULSE 89; RESP 20; TEMP 36.7
[2024-05-02 22:57] VITALS: BP 132/74; PULSE 84; RESP 20; TEMP 36.7; O2SAT 99
== END 2024-05-02 22:58 | disposition home or self-care (01) ==
PROVIDERS: Emergency Provider Emergency Medicine; PCP Nurse Practitioner Family
DX: M51.17 Intervertebral disc disorders with radiculopathy, lumbosacral region (principal); V49.9XXA Car occupant (driver) (passenger) injured in unspecified traffic accident, initial encounter
CPT/HCPCS: 94761; 96372; 99283; 99284; A9270; J1171

== ENCOUNTER 2024-06-09 14:34 | Emergency (ER) | payer OTHER, SELFPAY ==
[2024-06-09 14:58] VITALS: BP 133/71; PULSE 100; RESP 20; O2SAT 99; BMI 24.4
[2024-06-09] MEDS: 0.9 % SODIUM CHLORIDE 1000 ml 1,000 ML IV ×2 (15:37→16:41)
[2024-06-09] MEDS: ONDANSETRON 2 MG/ML inj 4 MG IVP (15:37)
[2024-06-09 15:38] LABS: Basophils Percent Auto 0.1 % (0.0-3.0); Eosinophils Percent Auto 0.6 % (0.0-7.0); Hematocrit 44.6 % (37.0-53.0); Hemoglobin* 15.3 gm/dL (13.5-17.5); Immature Granulocytes Pct Auto 0.2 %; Lymphocytes Percent Auto 6.2 % (20-44); Mean Corpuscular HGB Conc 34 gm/dL (32-36); Mean Corpuscular Hemoglobin 31 pg (26-34); Mean Corpuscular Volume 89 fL (80-100); Monocytes Percent Auto 5.9 % (0.0-11.0); Platelet Count* 235 K/uL (140-440); RDW Coefficient of Variation % 11.8 % (11.5-15.5); Red Blood Count 5.01 m/uL (4.30-5.90); White Blood Count* 11.95 K/uL (4.50-11.00)
--- NOTE | 2024-06-09 15:39 | ED.GENADULT ---
HPI - General Adult General Chief complaint: Nausea/Vomiting Stated complaint: back surgery yesterday, cannot stop vomiting Time Seen by Provider: 06/09/24 14:38 History of Present Illness HPI narrative: Patient is a 34-year-old gentleman who had diskectomy for single herniated disc in his lumbar spine yesterday. Today he developed significant nausea and vomiting. The vomiting has not been accompanied by any abdominal pain or pain at his incision site be does have significant diarrhea. He is not on any antibiotics. He has had no fevers no chills no chest pain no shortness a breath orthopnea no PND. No other abdominal pain. Symptoms been present for last 12 hours. Patient feels very dehydrated. Related Data Home Medications ?Medication ?Instructions ?Recorded ?Confirmed gabapentin 300 mg capsule 300 mg PO TID 05/02/24 06/09/24 pregabalin 100 mg capsule 100 mg PO 3XD 06/09/24 06/09/24 Previous Rx's ?Medication ?Instructions ?Recorded methylprednisolone 4 mg tablets in See Rx Instructions PO .COMPLEX 11/08/23 a dose pack (Medrol (Geovanny)) #21 ea methylprednisolone 4 mg tablets in See Rx Instructions PO .COMPLEX 02/26/24 a dose pack (Medrol (Geovanny)) #21 ea oxycodone 5 mg capsule 5 - 10 mg (1 - 2 x 5 mg) PO Q6H 02/26/24 PRN pain #14 caps oxycodone 5 mg tablet 5 - 10 mg (1 - 2 x 5 mg) PO Q6H 02/26/24 PRN pain #20 tabs Allergies Allergy/AdvReac Type Severity Reaction Status Date / Time No Known Drug Allergies Allergy Verified 05/02/24 20:39 Review of Systems Status of ROS: Reports: 10 or more systems reviewed and unremarkable except as noted in History and below [facility] Medical History Protrusion of lumbar intervertebral disc ?M51.26 - Other intervertebral disc displacement, lumbar region (ICD-10) Surgical History No significant past surgical history Social History Smoking Status: Never smoker Do you use any of these nicotine containing products: None Second hand tobacco smoke exposure: No How often do you have a drink containing alcohol: never How often do you have six or more drinks on one occasion: Never AUDIT-C Alcohol total score: 0 Non-prescribed substance use: marijuana (any form) Exam Narrative: Exam Narrative: EXAM GENERAL: Patient appears comfortable and well. EYES: No scleral icterus. ENT: Tympanic membranes and oropharynx normal. THYROID: no thyroid nodules or thyromegaly. LYMPH: No supraclavicular or cervical lymphadenopathy. SKIN: Examination of the lumbar spine shows well-healing well-approximated incision. No signs of cellulitis. EXT: No dependent lower extremity pedal edema. HEART: Regular rate and rhythm with no murmurs, rubs, or gallops. LUNGS: Clear to auscultation bilaterally with no crackles or wheezes. ABD: Soft, non tender, non distended. PSYCH: Good eye contact, speech is not pressured. Const: Vital Signs, click to edit/add: Vital Signs - 24 hr 06/09/24 14:58 Pulse Rate [Pulse Oximeter] 100 Respiratory Rate 20 Blood Pressure [Ri ght Upper Arm] 133/71 Pulse Oximetry 99 Course Course ED Course: Patient presents with nausea and vomiting 1 day postoperative lumbar diskectomy. I did start an IV and gave him 1 L of normal saline 4 mg of Zofran. CBC basic metabolic panel pending. Vital Signs Vital signs: Initial Vital Signs Pulse Rate 100 06/09/24 14:58 Respiratory Rate 20 06/09/24 14:58 Blood Pressure 133/71 06/09/24 14:58 Blood Pressure Mean 91 06/09/24 14:58 Pulse Oximetry 99 06/09/24 14:58 Vital Signs Pulse Rate 100 06/09/24 14:58 Respiratory Rate 20 06/09/24 14:58 Blood Pressure 133/71 06/09/24 14:58 Pulse Oximetry 99 06/09/24 14:58 Pulse Rate 100 06/09/24 14:58 Respiratory Rate 20 06/09/24 14:58 Blood Pressure 133/71 06/09/24 14:58 Pulse Oximetry 99 06/09/24 14:58 Medications Administered Medications: Discontinued Medications Generic Name Dose Route Start Last Admin Trade Name Freq PRN Reason Stop Dose Admin Sodium Chloride 1,000 mls @ 1,000 mls/hr 06/09/24 15:23 12/14/24 16:16 0.9 % Sodium Chloride 1000 Ml IV 06/09/24 16:22 Infused .Q1H LUISITO Infusion Ondansetron HCl 4 mg 06/09/24 15:22 06/09/24 15:37 Ondansetron 2 Mg/Ml Inj IVP 06/09/24 15:23 4 mg ONCE STA Administration Medical Decision Making MDM Narrative Medical decision making narrative: Patient is a 34-year-old gentleman who presents with nausea vomiting diarrhea. Does have slight leukocytosis. He had back surgery yesterday as described above. He appears have gastroenteritis or potentially delayed reaction to the anesthesia. He is given 2 L of normal saline with improvement of his symptoms. I did treated with IV Zofran I did discharge him to home to advance diet activity as tolerated and take Zofran as needed for nausea and vomiting. He will continue his current care for his low back incision and will follow-up with his doctor as scheduled. Lab Data Labs: Lab Results 06/09/24 Range/Units 15:32 WBC 11.95 H (4.50-11.00) K/uL RBC 5.01 (4.30-5.90) m/uL Hgb 15.3 (13.5-17.5) gm/dL Hct 44.6 (37.0-53.0) % MCV 89 (80-100) fL MCH 31 (26-34) pg MCHC 34 (32-36) gm/dL RDW Coeff of Glenny 11.8 (11.5-15.5) % Plt Count 235 (140-440) K/uL Neut % (Auto) 87.0 H (42.0-72.0) % Lymph % (Auto) 6.2 L (20-44) % Chester % (Auto) 5.9 (0.0-11.0) % Eos % (Auto) 0.6 (0.0-7.0) % Baso % (Auto) 0.1 (0.0-3.0) % Neut # (Auto) 10.40 H (1.7-7.0) K/uL Lymph # (Auto) 0.70 L (0.90-2.90) K/uL Chester # (Auto) 0.70 (0.00-0.90) K/UL Eos # (Auto) 0.10 (0.00-0.50) K/uL Baso # (Auto) 0.00 (0.00-0.30) K/uL Abs Immat Gran (auto) 0.00 (0.00-0.30) K/uL Imm/Tot Granulo (auto) 0.2 % Sodium 139 (135-149) mmol/L Potassium 3.6 (3.6-5.1) mmol/L Chloride 108 (96-114) mmol/L Carbon Dioxide 24 (20-32) mmol/L Anion Gap 7 (7-15) mEq/L BUN 12 (5-24) mg/dL Creatinine 0.7 (0.5-1.5) mg/dL Estimated Creat Clear 155.38 Estimated GFR 122 ml/min Glucose 135 H (60-115) mg/dL Calcium 9.1 (8.4-10.6) mg/dL Total Bilirubin 0.6 (0.1-1.5) mg/dL AST 22 (12-35) U/L ALT 20 (4-50) U/L Alkaline Phosphatase 64 (40-150) U/L Total Protein 6.5 (6.0-8.3) g/dL Albumin 4.2 (3.3-5.0) g/dL Lipase 49 (23-300) U/L Discharge Plan Discharge Clinical Impression: Vomiting Patient Disposition: Home, Self-Care Condition: Stable Instructions: Acute Nausea and Vomiting (ED) Additional Instructions: Zofran as directed Tylenol Motrin Ice Advanced diet as tolerated Follow-up as scheduled. Activity Level: No Restrictions Discharge Diet: Regular Prescriptions: No Action methylprednisolone [Medrol (Geovanny)] 4 mg tablets,dose pack See Rx Instructions .ROUTE .COMPLEX Qty: 21 0RF Rx Instructions: for 6 days gabapentin 300 mg capsule 300 mg PO TID pregabalin 100 mg capsule 100 mg PO 3XD oxycodone 5 mg capsule 5 - 10 mg PO Q6H PRN (Reason: pain) Qty: 14 0RF methylprednisolone [Medrol (Geovanny)] 4 mg tablets,dose pack See Rx Instructions .ROUTE .COMPLEX Qty: 21 0RF Rx Instructions: for 6 days oxycodone 5 mg tablet 5 - 10 mg PO Q6H PRN (Reason: pain) Qty: 20 0RF Follow Up/Referrals: Dasha Loera, CAR SCRUBBER, COMPENSATION AND BENEFITS ANALYST [Primary Care Provider] - Stand Alone Forms: MyHealth Info Instructions
[2024-06-09 15:41] LABS: Slide Review Reflex No
[2024-06-09 15:50] LABS: Albumin* 4.2 g/dL (3.3-5.0); Chloride* 108 mmol/L (96-114)
[2024-06-09 15:51] LABS: Potassium* 3.6 mmol/L (3.6-5.1); Sodium* 139 mmol/L (135-149)
[2024-06-09 15:53] LABS: Alkaline Phosphatase* 64 U/L (40-150); Anion Gap 7 mEq/L (7-15); Aspartate Amino Transferase* 22 U/L (12-35); Bilirubin Total* 0.6 mg/dL (0.1-1.5); Blood Urea Nitrogen* 12 mg/dL (5-24); Carbon Dioxide* 24 mmol/L (20-32); Creatinine* 0.7 mg/dL (0.5-1.5); Est. Creatinine Clearance* 155.38; Estimated Glomerular Filt Rate 122 ml/min; Total Protein* 6.5 g/dL (6.0-8.3)
[2024-06-09 15:54] LABS: Alanine Aminotransferase* 20 U/L (4-50); Calcium* 9.1 mg/dL (8.4-10.6); Glucose* 135 mg/dL (60-115); Lipase* 49 U/L (23-300)
== END 2024-06-09 17:12 | disposition home or self-care (01) ==
PROVIDERS: Emergency Provider Internal Medicine; PCP Nurse Practitioner Family
DX: R11.10 Vomiting, unspecified (principal)
CPT/HCPCS: 36415; 80053; 83690; 85025; 96361; 96374; 99283; 99284; J2405; J7030

== ENCOUNTER 2025-01-13 10:18 | Emergency (ER) | payer OTHER, SELFPAY ==
--- OUTSIDE RECORDS SUMMARY | 2025-01-13 10:20 | XMS_ITS | Clinical Summary ---
Author Organization [facility] Address [address] [place] [address] Care Team Providers Care Business Database Analyst Name Role Phone Ignacia Figueroa M.D. Primary Care Provider [phone] Source Comments Patient records contain information from all sites at [facility]. For routine questions regarding patient records, call [phone] during business hours, M-F 8:00 AM - 5:00 PM Central Time. Record requests for emergency care only can be directed to [phone] at any time.[facility] Allergies No known active allergies Medications prazosin (Minipress) 1 mg capsule Take 1 capsule (1 mg total) by mouth at bedtime. 90 capsule 1 4 06/14/20 25 Active cyclobenzaprine (FlexeriL) 10 mg tabletIndication s:Pain Low Back Unspecified Take 1 tablet (10 mg total) by mouth 3 (three) times a day as needed for muscle spasms. 30 tablet 4 Active aluminum chloride (Drysol) 20 % external solution Apply 1 Application topically at bedtime. Apply to armpits. 35 mL 11 5 Active hydrOXYzine (Atarax) 25 mg tablet Take 1 tablet (25 mg total) by mouth every 6 (six) hours as needed for anxiety. 30 tablet 3 5 Active DULoxetine (Cymbalta) [address] capsule Take 1 capsule (60 mg total) by mouth daily. 90 capsule 3 5 Active traZODone (DesyreL) 50 mg tablet Take 1-2 tablets (50-100 mg total) by mouth at bedtime as needed for sleep. 90 tablet 3 5 Active ALPRAZolam (Xanax) 1 mg tablet Take 1-2 tablets 30-60 minutes prior to the procedure. 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 Med Refill from Last 3 Months Immunizations Immunization Administration Dates Next Due Influenza, Seasonal, Injectable 05/03/2012 Tdap 09/30/2012 influenza vaccine quad (FLUZ ONE/FLUARIX) (6 months and older)(PF) 04/17/2015 Family History Relation Name Status Comments Father Alive Mother Alive Sister 1 Alive Sister 2 Alive Social History Tobacco Use Types Packs/Day Years Used Date Smoking Tobacco: Every Day Cigarettes 0.3 15.9 Started: 02/12/2008; Last attempted to quit: 06/07/2022 Passive Smoke Exposure: Current Smokeless Tobacco: Never Tobacco Cessation:Ready to Q uit: Yes; Counseling Given: Yes Alcohol Use Standard Drinks/Week Comments Not Currently 0 (1 standard drink = 0.6 oz pur e alcohol) [facility] Utilities Answer Date Recorded In the past 12 months has [employer], gas, oil, or water [employer] threatened to shut off services in your home? No 05/10/2024 Hunger Vital Sign Answer Date Recorded Within the past 12 months, y ou worried that your food would run out before you got the money to buy more. Never true 05/10/20 24 Within the past 12 months, t he food you bought just didn't last and you didn't have money to get more. Never true 05/10/2024 PRAPARE - Transportation Answer Date Re corded In the past 12 months, has l ack of transportation kept you from medical appointments or from getting medications? No 04/27 In the past 12 months, has l ack of transportation kept you from meetings, work, or from getting things needed for daily living? No 05/10/2024 Depression Answer Date Recor ded PHQ-9 Total Score (max 27) 13 01/04 Housing Stability Answer Date Recorded What is your living situation today? I have a [facility] place to live 05/10/2024 Sex and Gender Information Value Date Recorded Sex Assigned at Male 05/10/2024 10:00 PM FLY MAKER Legal Sex Male 6:08 AM FLY MAKER Gender Identity Male 05/10/2024 10:00 PM FLY MAKER Sexual Orientation Straight 05/10/2024 10 :00 PM FLY MAKER Last Filed Vital Signs Vital Sign Reading Time Taken Comments Blood Pressure 117/72 08/02/2024 11:08 AM FLY MAKER Pulse 99 08/02/2024 11:08 AM FLY MAKER Temperature 36.8 C (98.2 F) 08/02/2024 11:08 AM FLY MAKER Respiratory Rate 20 06/21/2024 8:20 AM FLY MAKER Oxygen Saturation 98% 08/02/2024 11:08 AM FLY MAKER Inhaled Oxygen Concentration - - Weight 78 kg (171 lb 15.3 oz) 07/04/2024 1:59 PM FLY MAKER Height 181.5 cm (5' 11.46) 06/21/2024 8:[address] Body Mass Index 23.68 06/21/2024 8:20 AM FLY MAKER Plan of Treatment Health Maintenance Due Date Last Done Comments HIV Screening 1988 Hepatitis C Screening 1988 Lipid (Cholesterol) Screening 1988 Hepatitis B Vaccines (1 of 3 - 19+ 3-dose series) 02/17/2007 Pneumococcal vaccine (0-49 years) (1 of 2 - PCV) 02/17/2007 HPV Vaccines (1 - 3-dose SCD M series) 02/17/2015 DTaP,Tdap,and Td Vaccines (2 - Td or Tdap) 09/30/2022 09/30/2012 COVID-19 Vaccine ( - 2023-2 5 season) 2024 Influenza Vaccine (#1) 2025 5, 05/03/2012 Depression Monitoring (PHQ-9) 05/07/2025 01/04/2025 Tobacco Cessation counseling 07/27/2025 07/27/2024 Depression Monitoring (PHQ-9 for quality tracking) Completed 08/02/2024, 07/27/2024 IPV Vaccines Aged Out No longer eligi ble based on patient's age to complete this topic Insurance [employer] Care Teams Business Database Analyst Relationship Specialty Start Date End Date Ignacia Figueroa M.D. [address] [place] [phone] PCP - General Family Medicine 07/04/24
--- OUTSIDE RECORDS SUMMARY | 2025-01-13 10:20 | XMS_ITS | Clinical Summary ---
Author Organization [facility] Address [address] [place] [id number] Care Team Providers Care Foot Specialist Name Role Phone Michele Bradshaw MD Unavailable [phone] None Primary Care Provider Unavailabl e Allergies No known active allergies Medications cyclobenzaprine (FLEXERIL) 5 mg tabletIndicatio ns:Chronic midline low back pain with right-sided sciatica Take 1 Tablet (5 mg) by mouth at bedtime if needed for Muscle Spasm. 20 Tablet 1 Active ibuprofen (ADVIL; MOTRIN) 600 mg tabletIndicatio ns:Acute right-sided low back pain with right-sided sciatica,Chroni c midline low back pain with right-sided sciatica Take 1 Tablet (600 mg) by mouth every 6 hours if needed for Pain. Maximum of 3200 mg in 24 hours. 30 Tablet 2 1 Active acetaminophen (TYLENOL) 325 mg tabletIndicatio ns:Herniated nucleus pulposus, L5-S1 Take 3 Tablets (975 mg) by mouth every 6 hours. Max acetaminophen dose: 4000mg in 24 hrs. 4 Active ibuprofen (ADVIL; MOTRIN) 200 mg tabletIndicatio ns:Herniated nucleus pulposus, L5-S1 Take 2 Tablets (400 mg) by mouth every 4 hours if needed for Pain. 4 Active oxyCODONE (ROXICODONE) 5 mg immediate release tabletIndicatio ns:Herniated nucleus pulposus, L5-S1 Take 1 Tablet (5 mg) by mouth every 4 hours if needed for Pain. 15 Tablet 02/09/2024 12:21 PM CDT 4 Active DULoxetine (CYMBALTA) 20 mg Delayed-release capsule Take 20 mg by mouth once daily. 4 025 Active prazosin (MINIPRESS) 1 mg capsule Take 1 mg by mouth. 4 025 Active acetaminophen (TYLENOL) 325 mg tabletIndicatio ns:Herniated nucleus pulposus, L5-S1 Take 3 Tablets (975 mg) by mouth every 6 hours. Max acetaminophen dose: 4000mg in 24 hrs. 4 Active ibuprofen (ADVIL; MOTRIN) 200 mg tabletIndicatio ns:Herniated nucleus pulposus, L5-S1 Take 2 Tablets (400 mg) by mouth every 4 hours if needed for Pain. 4 Active oxyCODONE (ROXICODONE) 5 mg immediate release tabletIndicatio ns:Herniated nucleus pulposus, L5-S1 Take 1 Tablet (5 mg) by mouth every 4 hours if needed for Pain. 15 Tablet 06/08/2024 12:24 PM PHYSICIAN AIDE 4 Active amitriptyline 25 mg tablet Take 25 mg by mouth. 4 025 Active pregabalin (Lyrica) 25 mg capsule Active oxyCODONE (ROXICODONE) 5 mg immediate release tabletIndicatio ns:Lumbar disc herniation,Radi culopathy, unspecified spinal region Take 1 Tablet (5 mg) by mouth every 6 hours if needed for Pain. 8 Tablet 01/11/2025 7:31 PM CDT 5 Active methylPREDNISol one (MEDROL DOSEPAK) 4 mg tabletIndicatio ns:Lumbar disc herniation,Radi culopathy, unspecified spinal region Take by mouth as instructed per packaging. 21 Tablet 01/11/2025 7:31 PM CDT 5 Active Active Problems Problem Noted Date Diagnosed Date recurrent herniated nucleus pulposus L5-S1 02/08 Encounters Date Type Department Care Team Description 01/11/2025 1:51 PM CDT - 01/11/2025 7:20 PM CDT Emergency [facility] [address] [place] [address] Steven Coreas PA Lumbar disc herniation (Primary Dx); Radiculopathy, unspecified spinal region Discharge Disposition: Home Self Care 01/11/2025 Travel from Last 3 Months Immunizations Immunization Administration Dates Next Due Influenza, IIV3 (Age >=3 years) 05/03/2012 Influenza, IIV4 04/17/2015 Tdap 09/30/2012 Family History Medical History Relation Name Comments Lumbar disc disease Father Dad had Surg for disc in low back. Relation Name Status Comments Father Social History Tobacco Use Types Packs/Day Years Used Date Smoking Tobacco: Every Day Cigarettes Last attempted to quit: 09/21/2021 Smokeless Tobacco: Never Tobacco Cessation:Ready to Q uit: Not Asked; Counseling Given: Not Answered Alcohol Use Standard Drinks/Week Comments Yes 0 (1 standard drink = 0.6 oz pur e alcohol) socially PHQ-2 Answer Date Recorded PHQ-2 TOTAL SCORE 1 06/30/2020 Financial Resource Strain Answer Date R ecorded Difficulty of Paying Living Expenses Not on file 06/27/2021 Difficulty of Paying Living Expenses Not on file 06/27/2021 Interpersonal Safety Answer Date Record ed Are you being hit, kicked, p ushed or yelled at (see row info)? 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 Gender Identity Not on file Sexual Orientation Not on file Obstetrics History Last Filed Vital Signs Vital Sign Reading Time Taken Comments Blood Pressure 124/61 01/11/2025 5:30 PM CDT Pulse 59 01/11/2025 5:30 PM CDT Temperature 36.7 C (98 F) 01/11/2025 1:46 PM CDT Respiratory Rate 18 01/11/2025 5:30 PM CDT Oxygen Saturation 99% 01/11/2025 5:30 PM CDT Inhaled Oxygen Concentration - - Weight 80.7 kg (178 lb) 01/11/2025 1:46 PM CDT Height 180.3 cm (5' 11) 01/11/2025 1:46 PM CDT Body Mass Index 24.83 01/11/2025 1:46 PM CDT Plan of Treatment Health Maintenance Due Date Last Done Comments HIV for age 15-65 02/17/2003 Hepatitis C screening for ag e 18-79 02/17/2006 Hepatitis B series for 19+ ( 1 of 3 - 19+ 3-dose series) 02/17/2007 Pneumococcal series for age 6-49 (1 of 2 - PCV) 02/17/2007 Depression screening for age 12+ 06/30/2021 06/30/19 21 BMI (ht and wt on same day) for age 18+ 03/13/2022 03/13/2021, 06/30/2020, 11/29/2016, Additional history exists Tetanus booster 09/30/2022 09/30/2012 (Comp leted outside of [facility]), 09/30/2012 Lipids for age 35-44 02/17/2023 COVID-19 vaccine series (2023- season) 2024 Influenza Vaccine (#1) 2025 04/17/2015, 2011 Procedures Procedure Name Priority Date/Time Associated Diagnosis Comments MR SPINE LUMBAR WWO STAT 01/11/2025 5:03 PM CDT from Last 3 Months Results * MR Lumbar Spine W/WO if Previous Surgery (01/11/2025 5:03 PM CDT) Anatomical Region Laterality Modality Spine, LUMBAR SPINE Magnetic Res onance 01/11/2025 5:15 PM CDT Narrative 01/11/2025 5:15 PM CDT For Patients: As a result of the Century Cures Act, medical imaging exams and procedure reports are released immediately into your electronic medical record. You may view this report before your referring provider. If you have questions, please contact your health care provider. Indication: Lumbar radiculopathy. Technique: Multiplanar multisequence MR imaging of the lumbar spine prior to and following intravenous administration of 20 mL Clariscan. Comparison: MRI lumbar spine 09/21/2021. Findings: The lumbar lordosis is preserved. No acute fracture or spondylolisthesis. No T1 hypointense lesions. Normal conus terminates at L2. T12-L1 through L3-4: No spinal canal or neural foraminal narrowing. L4-5: Pxgs-xo-asxmdnuq disc degeneration. Minimal endplate edema. Shallow disc bulge. Mild facet arthropathy. No spinal canal or neural foraminal narrowing. L5-S1: Postsurgical changes of right hemilaminectomy with enhancing granulation tissue in the laminectomy bed and extending into the right lateral recess. Disc degeneration and disc height loss. Mild vertebral body edema. Posterior disc bulging and endplate spondylitic ridging. Right subarticular disc extrusion demonstrating cephalad and caudal migration measures 10 mm in anteroposterior dimension and severely effaces the right lateral recess with probable impingement of traversing right S1 nerve roots. Mild facet arthropathy. Minimal spinal canal narrowing. Moderate bilateral neural foraminal narrowing. Impression: 1. At L5-S1, postsurgical changes of right hemilaminectomy with enhancing granulation tissue in the laminectomy bed and extending into the right lateral recess. Right subarticular disc extrusion severely effaces the right lateral recess with probable impingement of traversing right S1 nerve roots. Moderate bilateral neural foraminal stenosis. Mild discogenic vertebral body edema. Dictated by Minh Pendleton MD @ 01/11/2025 5:15:01 PM (Electronically Signed) Procedure Note Minh Pendleton MD - 01/11/2025 For Patients: As a result of the Cures Act, medical imagingexams and procedure reports are released immediately into your electronicmedical record. You may view this report before your referring provider.If you have questions, please contact your health care provider. Indication: Lumbar radiculopathy. Technique: Multiplanar multisequence MR imaging of the lumbar spine prior to andfollowing intravenous administration of 20 mL Clariscan. Comparison: MRI lumbar spine 09/21/2021. Findings: The lumbar lordosis is preserved. No acute fracture or spondylolisthesis.No T1 hypointense lesions. Normal conus terminates at L2. T12-L1 through L3-4: No spinal canal or neural foraminal narrowing. L4-5: Bipu-sr-ehktyows disc degeneration. Minimal endplate edema. Shallowdisc bulge. Mild facet arthropathy. No spinal canal or neural foraminalnarrowing. L5-S1: Postsurgical changes of right hemilaminectomy with enhancinggranulation tissue in the laminectomy bed and extending into the rightlateral recess. Disc degeneration and disc height loss. Mild vertebralbody edema. Posterior disc bulging and endplate spondylitic ridging. Rightsubarticular disc extrusion demonstrating cephalad and caudal migrationmeasures 10 mm in anteroposterior dimension and severely effaces the rightlateral recess with probable impingement of traversing right S1 nerveroots. Mild facet arthropathy. Minimal spinal canal narrowing. Moderatebilateral neural foraminal narrowing. Impression: 1. At L5-S1, postsurgical changes of right hemilaminectomy with enhancinggranulation tissue in the laminectomy bed and extending into the rightlateral recess. Right subarticular disc extrusion severely effaces theright lateral recess with probable impingement of traversing right [id number] roots. Moderate bilateral neural foraminal stenosis. Mild discogenicvertebral body edema. Dictated by Minh Pendleton MD @ 01/11/2025 5:15:01 PM (Electronically Signed) Steven FRANCES MR Final Re sult from Last 3 Months Insurance [facility] Advance Directives * Full Code (Latest Code Status on File) Date Activated Date Inactivated Comments 06/08/2024 9:50 AM 06/08/2024 3:07 PM Question Answer Comments Code Status Discussion: Per Existing Order * Full Code Date Activated Date Inactivated Comments 06/08/2024 6:35 AM 06/08/2024 9:50 AM Question Answer Comments Code Status Discussion: Unable to Assess Preferences, Provider to review later * Full Code Date Activated Date Inactivated Comments 02/09/2024 10:53 AM 02/10/2024 2:38 AM Question Answer Comments Code Status Discussion: Per Existing Order * Full Code Date Activated Date Inactivated Comments 02/09/2024 6:37 AM 02/09/2024 10:53 AM Question Answer Comments Code Status Discussion: Unable to Assess Preferences, Provider to review later Care Teams Foot Specialist Relationship Specialty Start Date End Date None . PCP - General 01/11/25 Michele Bradshaw MD Otolaryngology Surgery - Otolaryngology 10/09/12
--- OUTSIDE RECORDS SUMMARY | 2025-01-13 10:20 | XMS_ITS | Encounter Summary ---
Author Organization [facility] Address [address] [place] [address] Care Team Providers Care Top Dyeing Machine Loader Name Role Phone Ignacia Figueroa M.D. Primary Care Provider [phone] Reason for Visit * Reason Comments Med Refill Encounter Details Date Type Department Care Team (Late st Contact Info) Description 01/09/2025 Refill Department of Family Medicine, [facility], in [address] [id number] Sourav Ward P.A.-C., P.A. [address] [place] [phone] Med Refill Social History Tobacco Use Types Packs/Day Years Used Date Smoking Tobacco: Every Day Cigarettes 0.3 15.9 Started: 02/12/2008; Last attempted to quit: 06/07/2022 Passive Smoke Exposure: Current Smokeless Tobacco: Never Alcohol Use Standard Drinks/Week Comments Not Currently 0 (1 standard drink = 0.6 oz pur e alcohol) [facility] Utilities Answer Date Recorded In the past 12 months has e electric, gas, oil, or water company threatened to shut off services in your [...] your living situation today? 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 [address] [place] [phone] PCP - General Family Medicine 07/04/24 documented as of this encounter
[2025-01-13 10:21] VITALS: BP 139/75; PULSE 115; RESP 18; TEMP 36.9; O2SAT 97; BMI 23.0
--- NOTE | 2025-01-13 11:06 | ED.BACK ---
HPI - Back Pain/Injury General Time Seen by Provider: 11:06 Date Seen: 01/13/25 Chief Complaint: Back Injury/Pain Stated Complaint: back pain Time Seen by Provider: 01/13/25 10:32 Source: patient, RN notes reviewed and old records reviewed Mode of arrival: ambulatory Limitations: no limitations History of Present Illness HPI Narrative: This 34-year-old male is presenting with uncontrolled back pain. He has a known right radiculopathy in the pain is just excruciating, states he did not sleep at all last night. He has been taking oxycodone every 6 hours but is out of it really was not helping. He was given a Medrol Dosepak on the when he was in [facility] ED. It is not helping. His right leg numbness is work. He has had to pull lidocaine and is walking with a cane now. It is unclear whether he is having strength issues or its pain issues. He is still controlling his bowel and bladder. He was into the ED at [facility] on January 11, had a negative postvoid residual, did have an MRI done which was reviewed by [facility] where he sees a back surgeon. He has had lumbar surgery on 02/09/2024 with a lexx laminectomy, discectomy and decompression. He had a follow-up surgery on 06/08/2024 with a redo discectomy L5-S1 decompression. He has been taking Tylenol and ibuprofen, oxycodone. He is no longer on amitriptyline, no Flexeril, no Cymbalta, no Lyrica. He had in the past use gabapentin, he wonders if he needs something along the lines of this to help with his pain. When he went into the ER at [facility] he initially got morphine which did help, dilaudid seemed to help better. He does do construction for work. There are no fevers chills, no new trauma. He does meet with his spine surgeon tomorrow. I have reviewed his records from that [facility] visit and the MRI, they are copied into this note under the medical records, please see below. elicited complaint: back pain Related Data Home Medications ?Medication ?Instructions ?Recorded ?Confirmed duloxetine 60 mg capsule,delayed 60 mg PO DAILY 01/13/25 01/13/25 release prazosin 1 mg capsule 1 mg PO QPM 01/13/25 01/13/25 Previous Rx's ?Medication ?Instructions ?Recorded gabapentin 100 mg capsule 200 mg (2 x 100 mg) PO TID #100 01/13/25 caps hydromorphone 2 mg tablet 2 mg PO Q4-6H PRN pain #10 tabs 01/13/25 (Dilaudid) Allergies Allergy/AdvReac Type Severity Reaction Status Date / Time No Known Drug Allergies Allergy Verified 01/13/25 10:26 Review of Systems Narrative: As per HPI. PFSH [facility] Medical History (Updated 01/13/25 @ 15:06 by Wendy Ford MD) Protrusion of lumbar intervertebral disc ?M51.26 - Other intervertebral disc displacement, lumbar region (ICD-10) Surgical History (Updated 01/13/25 @ 11:37 by Wendy Ford MD) History of lumbar surgery ?Z98.890 - Other specified postprocedural states (ICD-10) Social History Smoking Status: Never smoker Do you use any of these nicotine containing products: None Second hand tobacco smoke exposure: No How often do you have a drink containing alcohol: never How often do you have six or more drinks on one occasion: Never AUDIT-C Alcohol total score: 0 Non-prescribed substance use: marijuana (any form) Exam Const: Vital Signs, click to edit/add: Vital Signs - 24 hr 01/13/25 10:21 01/13/25 11:48 Temperature 98.5 F Pulse Rate [Right Pulse Oximeter] 115 H Respiratory Rate 18 Blood Pressure [Ri ght Upper Arm] 139/75 Pulse Oximetry 97 97 Oxygen Delivery Me thod Room Air Patient kneeling on the bed with his knees on the ground, gets up and paces. It is so uncomfortable that he really does not feel he can comply with examination. Discussed trying to get him some pain management and we will come back to do examination. He would greatly appreciate that. 12:00 p.m.: Patient is finally in bed, has a pillow under his right knee putting his hip and knee in flexion. He has improvement in his pain. Both of his feet are warm and dry, excellent dorsalis pedis and posterior tibialis pulses that are equal and symmetric. Both feet are warm and dry, he has no lower extremity edema. Plantar flexion and dorsiflexion at the great toes as well as through the feet seem to be preserved, the dorsiflexion of the right foot maybe had some slightly decreased strength testing but overall he is able to withhold. He has preserved strength with flexion extension of the knee although the range of motion in the lower extremity exacerbates his back pain and radiculopathy. He has definite positive straight leg raise with just minimal extension of his knee without really any movement of extending the hip. Still seems to have sensation in the right lower extremity although he states he is getting numbness and tingling in this extremity. I cannot get DTRs on either patella or Achilles on either leg. Documenting provider has reviewed patient's vital signs: yes Course Course ED Course: Will have patient get an IV, he will be on pulse oximetry to monitor for IV narcotics. Will order dilaudid in Zofran, 10 mg IV dexamethasone and 15 mg IV Toradol. We will also initiate 200 mg oral gabapentin. Will give these medicines some time to take effect and then I will need to examine him. He and his significant other that he presents with are in agreement with this plan. Reevaluation(s) Time of Reevaluation #1: 12:00 Reevaluation #1: He is finally comfortable, will let him rest here and observe for while. If pain management was not achievable, we had discussed potential transfer to [facility] for hospitalization for pain management and neurosurgical consultation. He has a video appointment with his surgeon at 9 or 930 tomorrow morning. I am certainly willing to provide prescription for gabapentin and some Dilaudid oral tablets to get him through tomorrow. If we can get his pain control bowl, I do think that he can discharge to home for outpatient management. We will see how he does here and how long the pain management lasts. Time of Reevaluation #2: 14:01 Reevaluation #2: Patient id sleep for a while. Pain is starting to return. We are going to attempt an oral dose of Dilaudid to see if it will be sufficient and if we can perhaps discharge him to home for further outpatient management. Time of Reevaluation #3: 15:03 Reevaluation #3: Patient just received his oral dilaudid about 20 minutes ago but does feel like it is helping. He feels like his pain is improved enough to discharge to home. I will send in prescriptions for gabapentin + some dilaudid. He got up to ambulate to the bathroom and is able to do so independently. Vital Signs Vital signs: Initial Vital Signs Temperature 98.5 F 01/13/25 10:21 Temperature Source Temporal Artery Scan 01/13/25 10:21 Pulse Rate 115 H 01/13/25 10:21 Pulse Rhythm Regular 01/13/25 10:21 Pulse Strength 3+ Normal 01/13/25 10:21 Respiratory Rate 18 01/13/25 10:21 Blood Pressure 139/75 01/13/25 10:21 Blood Pressure Mean 96 01/13/25 10:21 Blood Pressure Position Sitting 01/13/25 10:21 Pulse Oximetry 97 01/13/25 10:21 Oxygen Delivery Method Room Air 01/13/25 10:21 Vital Signs Temperature 98.5 F 01/13/25 10:21 Pulse Rate 115 H 01/13/25 10:21 Respiratory Rate 18 01/13/25 10:21 Blood Pressure 139/75 01/13/25 10:21 Pulse Oximetry 97 01/13/25 10:21 Oxygen Delivery Method Room Air 01/13/25 10:21 Temperature 98.5 F 01/13/25 10:21 Pulse Rate 115 H 01/13/25 10:21 Respiratory Rate 18 01/13/25 10:21 Blood Pressure 139/75 01/13/25 10:21 Pulse Oximetry 97 01/13/25 11:48 Oxygen Delivery Method Room Air 01/13/25 10:21 Medications Administered Medications: Discontinued Medications Generic Name Dose Route Start Last Admin Trade Name Ulises PRN Reason Stop Dose Admin Dexamethasone 10 mg 01/13/25 11:17 01/13/25 11:32 Dexamethasone 10 Mg/Ml Pf IVP 01/13/25 11:18 10 mg ONCE ONE Administration Gabapentin 200 mg 01/13/25 11:19 01/13/25 11:45 Gabapentin 100 Mg Capsule PO 01/13/25 11:20 200 mg ONCE ONE Administration Hydromorphone HCl 0.5 mg 01/13/25 11:17 01/13/25 11:38 Hydromorphone 0.5 Mg/0.5 Ml Inj IVP 01/13/25 11:18 0.5 mg ONCE ONE Administration Hydromorphone HCl 2 mg 01/13/25 14:02 01/13/25 14:41 Hydromorphone 2 Mg Tablet PO 01/13/25 14:03 2 mg ONCE ONE Administration Ketorolac Tromethamine 15 mg 01/13/25 11:19 01/13/25 11:34 Ketorolac 15 Mg/Ml Inj IVP 01/13/25 11:20 15 mg ONCE ONE Administration Ondansetron HCl 4 mg 01/13/25 11:17 01/13/25 11:36 Ondansetron 2 Mg/Ml Inj IVP 01/13/25 11:18 4 mg ONCE ONE Administration MDM - Back Pain/Injury Medical Records Attestation: I reviewed the patient's medical records. Medical records narrative: Indication:Lumbar radiculopathy.?Technique:Multiplanar multisequence MR imaging of the lumbar spine prior to and following intravenous administration of 20 mL Clariscan.?Comparison:MRI lumbar spine 09/21/2021.?Findings:The lumbar lordosis is preserved. No acute fracture or spondylolisthesis. No T1 hypointense lesions. Normal conus terminates at L2. ?T12-L1 through L3-4: No spinal canal or neural foraminal narrowing.L4-5: Cgea-tp-vcmlceyr disc degeneration. Minimal endplate edema. Shallow disc bulge. Mild facet arthropathy. No spinal canal or neural foraminal narrowing.L5-S1: Postsurgical changes of right hemilaminectomy with enhancing granulation tissue in the laminectomy bed and extending into the right lateral recess. Disc degeneration and disc height loss. Mild vertebral body edema. Posterior disc bulging and endplate spondylitic ridging. Right subarticular disc extrusion demonstrating cephalad and caudal migration measures 10 mm in anteroposterior dimension and severely effaces the right lateral recess with probable impingement of traversing right S1 nerve roots. Mild facet arthropathy. Minimal spinal canal narrowing. Moderate bilateral neural foraminal narrowing.?Impression:?1. At L5-S1, postsurgical changes of right hemilaminectomy with enhancing granulation tissue in the laminectomy bed and extending into the right lateral recess. Right subarticular disc extrusion severely effaces the right lateral recess with probable impingement of traversing right S1 nerve roots. Moderate bilateral neural foraminal stenosis. Mild discogenic vertebral body edema.???Dictated by Minh Pendleton MD @ 01/11/2025 5:15:01 PM?(Electronically Signed) ?PATIENT: Jass Peters 34 y.o. male ?CHIEF COMPLAINT:Back Pain??HPI Jass Peters is a 34 y.o. male with a history of radiculopathy, herniated disc, previous lumbar surgeries who presents complaining of back pain.?Per electronic medical record review patient has a history of back surgery in the past with 1 completed 02/09/2024, 1 year ago which was a hemilaminectomy discectomy and decompression and then had a second surgery on 06/08/2024 and was a redo discectomy L5-S1 decompression.?Patient reports that following the surgery his pain was improved somewhat and has been following with [facility] and [facility] for this. Had a flare of pain back in June of this year but otherwise has actually been doing well until this last month when he had recurrent slow progression of symptoms. Over the last week and a half has now gotten much worse. Cannot think of anything in particular that would have sparked this as he had no falls or trauma. Pain is in the right low back and radiates down the right buttock and into the right leg. Over the last several days has now developed numbness to the entirety of the right lower extremity. He has tingling and numbness in the genital area especially in the area beneath his testicles in the perineum. Yesterday had 1 episode of incontinence where he urinated on himself without realizing it upon waking. Has had difficulty ambulating secondary to pain. Has been using qysx-bqk-ukludou medications without any relief. Has never had the incontinence or saddle anesthesia in the past but the location of his pain in the right low back and right lower extremity is consistent with previous.?He denies any fevers chills or sweats. Denies any chest pain or shortness of breath. Denies any abdominal pain or urine symptoms. Denies black or bloody stools.?SHx: Smokes half a pack of cigarettes daily, no EtOH?ALLERGIES:Patient has no known allergies.?CURRENT MEDICATIONS: acetaminophen (TYLENOL) 325 mg tabletacetaminophen (TYLENOL) 325 mg tabletamitriptyline 25 mg tabletcyclobenzaprine (FLEXERIL) 5 mg tabletDULoxetine (CYMBALTA) 20 mg Delayed-release capsuleibuprofen (ADVIL; MOTRIN) 200 mg tabletibuprofen (ADVIL; MOTRIN) 200 mg tabletibuprofen (ADVIL; MOTRIN) 600 mg tabletmethylPREDNISolone (MEDROL DOSEPAK) 4 mg tabletoxyCODONE (ROXICODONE) 5 mg immediate release tabletoxyCODONE (ROXICODONE) 5 mg immediate release tabletoxyCODONE (ROXICODONE) 5 mg immediate release tabletprazosin (MINIPRESS) 1 mg capsulepregabalin (Lyrica) 25 mg capsule??PROBLEM LIST: recurrent herniated nucleus pulposus L5-S1???PAST MEDICAL HISTORY: Past Medical History:.Date?Anxiety??Insomnia??Lumbosacral radiculopathy??Other intervertebral disc displacement, lumbar region??Severe major depression, single episode, without psychotic features (HC)??PAST SURGICAL HISTORY: Past Surgical History:.LateralityDate?Decompession- hemilaminotomy/discectomy l5-s1 right (right: spine, lumbar)?02/09/2024?Decompression - redo discectomy l5-s1 right side - right?06/08/2024?FAMILY HISTORY: Family HistoryProblemRelationAge of Onset?Lumbar disc diseaseFather?? Dad had Surg for disc in low back. ?SOCIAL HISTORY:Marital Status: Single [1]Employment Status: Entry Level Account Representative [1] Occupation: Substance Use:Social History Tobacco Use Smoking status: Every Day Packs/day: 0.00 Types: Cigarettes Last attempt to quit: 09/21/2021 Years since quittin.3 Smokeless tobacco: Never Vaping Use Vaping status: Never Used Alcohol use: Yes Comment: socially Drug use: Yes Types: Marijuana ?Review of SystemsSee HPI?Patient Vitals for the past 24 hrs:?[id number]/18/25 [id number] %??01/11/25 [id number] ?F (36.7 ?C)206854 %1.803 m (5' 11)80.7 kg (178 lb) Physical ExamVitals and nursing note reviewed. Constitutional: General: He is not in acute distress. Appearance: He is not toxic-appearing. HENT: Mouth/Throat: Mouth: Mucous membranes are moist. Pulmonary: Effort: Pulmonary effort is normal. Musculoskeletal: Cervical back: Normal range of motion. Comments: Diffuse tenderness over the lower lumbar spine and buttock. Pain with straight leg raise and unable to raise his leg fully off the bed secondary to significant pain. Subjectively decree sensation to the right lower extremity compared to the left but still present. 5 out of 5 strength with dorsiflexion bilaterally but 4 out of 5 strength on the right foot with plantarflexion compared to 5 out of 5 on the left. 2+ DP pulses. Unable to perform hip flexion as patient has significant pain with attempting hip flexion. Skin: General: Skin is warm and dry. Neurological: Mental Status: He is alert. Psychiatric: Mood and Affect: Mood and affect normal. ???Imaging: MR Lumbar Spine W/WO if Previous SurgeryFinal Result? Interventions:All Medication Administration through 01/11/2025 190 ??Date/TimeOrderDoseRouteAction?01/11/2025 1707 CDTHYDROmorphone (PF) (DILAUDID) syringe 0.5 mg0.5 mgIntravenousGiven?01/11/2025 1707 CDTketorolac (TORADOL) 15 mg/mL injection 15 mg15 mgIntravenousGiven?01/11/2025 1519 CDTLORazepam 0.5 mg tablet (ATIVAN)0.5 mgOralGiven?01/11/2025 1519 CDTmorphine 4 mg/mL injection 4 mg4 mgIntravenousGiven?? ?ED Course:3:04 PM Electronic Medical Record Reviewed.?3:05 PM I met with the patient to gather history and to perform my initial exam. We discussed plans for the ED course, including diagnostic testing and treatment. ?5:02 PM Rechecked and updated patient. ?5:45 PM Rechecked and updated patient. Paged [facility].?6:[address] Manny Reyes who recommends post void residual and they will take a look at the MRI as well. ?6:55 PM postvoid residual with nothing left in the bladder whatsoever. Again spoke with Dr. Manny Reyes who was able to review the images and agrees symptoms related to disc reherniation with no other signs of concerning finding.?7:09 PM Rechecked the patient. Findings discussed. We discussed plans for discharge and follow up care. Patient is in stable condition and will be discharged to home. ?Impression and Plan: ED Course as of 01/11/251908Fri Jan [id number] with previous history of low back pain and requiring 2 previous discectomy surgeries with radiculopathy on the right side. Since that time has been doing well into the last month symptoms returned. Especially worse this last 1 or 2 weeks and developed saddle anesthesia and had an episode of incontinence yesterday prompting him to call his surgeon who recommended presenting to the ER. Reports the pain is in the same location as previous however the saddle anesthesia and incontinence is new during this episode. On my examination he does have some weakness with plantarflexion on the right foot compared to the left. Unable to perform straight leg raise as he had significant pain with even slight movement of the right leg.Suspect likely recurrent radiculopathy but with the incontinence and saddle anesthesia unable to rule out possibility of cauda equina or conus medullaris. Will plan for MRI imaging of the lumbar spine to assess for possible causes and rule out need for emergent surgical intervention. Given his previous history, we will plan for MRI with and without contrast. Plan for pain medication in the meantime to help with symptoms. [DE]182MR shows recurrent disc extrusion and some postlaminectomy bed changes. Does have moderate spinal stenosis. Spoke with [facility] who will evaluate the MRI images but in the meantime recommends obtaining a postvoid residual given his recent incontinence [DE]1907Spoke with [facility] who was able to review the images. Postvoid residual shows no urine left in the bladder. Very reassuring that this is not cauda equina conus medullaris as he is able to void without difficulty. Will plan for symptomatic management and suspect his symptoms are related to reherniation and nerve impingement. Plan for Medrol Dosepak and oxycodone for pain relief. Patient given short prescription I discussed plans for follow-up with spine surgery and recommended calling them on Tuesday to set up appointment as soon as able. We discussed indications to return in the meantime if anything worsens or changes. Patient discharged home. [DE]?ED Course User Index[DE] Steven Coreas PA ?Additional Documentation: Discharge. I prescribed additional prescription strength medication(s) as charted. I considered admission, but discharged after reassuring labs and/or imaging.?MIPS (CTPE, Dental pain, Low Back pain, Johnson, Sinusitis, Asthma/COPD, Head Trauma): Low Back Pain: MDM for Opiates: Opiates were administered or prescribed for suspected or known herniated disc, sciatica, or radiculopathy. ?Diagnosis: ENCOUNTER DIAGNOSES??ICD-10-CM?1.Lumbar disc herniation M51.26oxyCODONE (ROXICODONE) 5 mg immediate release tablet??methylPREDNISolone (MEDROL DOSEPAK) 4 mg tablet?2.Radiculopathy, unspecified spinal region M54.10oxyCODONE (ROXICODONE) 5 mg immediate release tablet??methylPREDNISolone (MEDROL DOSEPAK) 4 mg tablet?Medications Prescribed this Visit ???DispRefillsStartEnd?oxyCODONE (ROXICODONE) 5 mg immediate release tablet8 Eblsqy6701/11/2025??Take 1 Tablet (5 mg) by mouth every 6 hours if needed for Pain.?Oral?methylPREDNISolone (MEDROL DOSEPAK) 4 mg [id number] Sqgmzu8901/11/2025??Take by mouth as instructed per packaging.?Discharge Instructions ??You were seen at [facility] today for your low back pain and leg pain. You had a thorough workup that included a physical exam and an MRI. Your testing does show a reherniation of the disc in your lower back that is putting pressure on the nerve that goes down your leg. This will explains her symptoms and we do not see any signs of anything more concerning with the spinal cord itself. We will have you follow-up with the [facility] orthopedic team as an outpatient and I would call them first thing on Tuesday morning to discuss when they are able to see you. Let them know you are in the emergency department for this. In the meantime we will control your symptoms with the oxycodone as needed for pain relief as well as the Medrol Dosepak for inflammation of the nerve which has been helpful for you in the past.?In the meantime your symptoms should not worsen so would have you return to the emergency department something worsens or changes with severe change in pain, loss of control of bowel or bladder control, leg weakness, further incontinence or other new symptoms. ?Discharge References/Attachments Radicular Pain (Welsh)Herniated Disk (Welsh)??Follow-up Information ??Follow up WithSpecialtiesDetailsWhyContact Info?[facility] DepartmentEmergency?If symptoms [id number] [facility] [phone]?Center, [facility] - OrthopedicsCall in 3 days?[address] [facility] [phone]??? Exam Ended:?01/11/25 ?5:03 PM Last Resulted:?01/11/25 ?5:15 PM Discharge Plan Discharge Clinical Impression: Lumbar radiculopathy Patient Disposition: Home, Self-Care Condition: Stable Instructions: Lumbar Radiculopathy (ED) Additional Instructions: We will initiate gabapentin at 200 mg 3 times a day; you can increase by 100 mg daily over the next 3-4 days as tolerated. I would recommend increasing the nighttime dose 1st to 300 mg tomorrow, the following day you could either do morning or mid afternoon, etc.. I will send a prescription for Dilaudid in for pain management. You can continue with Tylenol 1000 mg 3 times a day and ibuprofen 600 mg up to 4 times a day, do recommend taking this with food to protect her stomach. Complete the Medrol Dosepak. Keep your appointment with your spine surgeon tomorrow morning. If you have motor, bowel or bladder issues as outlined in the discharge information, it need emergent re-evaluation and would recommend going where they actually have a spinal surgeon. Note we will not be able to give further narcotics from the ED so please make sure that the surgeon will send you in further pain management tomorrow or you will need to get some from your primary care provider. Activity Level: Activity as Tolerated Prescriptions: New gabapentin 100 mg capsule 200 mg PO TID Qty: 100 0RF Rx Instructions: Can increase to 300mg dosing over 3 days hydromorphone [Dilaudid] 2 mg tablet 2 mg PO Q4-6H PRN (Reason: pain) Qty: 10 0RF No Action prazosin 1 mg capsule 1 mg PO QPM duloxetine 60 mg capsule,delayed release(DR/EC) 60 mg PO DAILY Follow Up/Referrals: Dasha Loera, BREA, [facility]GET[employer] [Referring, Family Practice] Stand Alone Forms: [employer] [facility] Info Instructions
[2025-01-13] MEDS: DEXAMETHASONE 10 MG/ML PF IVP (11:32)
[2025-01-13] MEDS: ONDANSETRON 2 MG/ML inj 4 MG IVP (11:36)
[2025-01-13] MEDS: GABAPENTIN 100 MG CAPSULE 200 MG PO (11:45)
[2025-01-13 11:48] VITALS: O2SAT 97
== END 2025-01-13 15:36 | disposition home or self-care (01) ==
PROVIDERS: Emergency Provider Family Medicine
DX: M54.16 Radiculopathy, lumbar region (principal)
CPT/HCPCS: 94761; 96374; 96375; 99283; A9270; J1100; J1171; J1885; J2405

== ENCOUNTER 2025-01-26 03:17 | Emergency (ER) | payer OTHER, SELFPAY ==
--- OUTSIDE RECORDS SUMMARY | 2025-01-26 03:19 | XMS_ITS | Encounter Summary ---
Author Organization [facility] Address [address] [place] [address] Care Team Providers Care Ip Litigation Associate Name Role Phone Ignacia Figueroa M.D. Primary Care Provider +1- [phone] Reason for Visit * Reason Onset Date Comments Med Refill 01/18/2025 URGENT-patient i s out. Encounter Details Date Type Department Care Team (Late st Contact Info) Description 01/18/2025 Refill Department of Family Medicine, [facility], in [address] [phone] Ignacai Figueroa M.D. [address] [place] [phone] Med Refill (URGENT-patient is out. ) Social History Tobacco Use Types Packs/Day Years Used Date Smoking Tobacco: Every Day Cigarettes 0.3 15.9 Started: 02/12/2008; Last attempted to quit: 06/07/2022 Passive Smoke Exposure: Current Smokeless Tobacco: Never Alcohol Use Standard Drinks/Week Comments Not Currently 0 (1 standard drink = 0.6 oz pur e alcohol) [facility] Utilities Answer Date Recorded In the past 12 months has [employer] electric, gas, oil, or water company threatened [...] your living situation today? I have a [facility] place to live 05/10/2024 Sex and Gender Information Value Date Recorded Sex Assigned at Male 05/10/2024 10:00 PM MANAGER LVN Legal Sex Male 6:08 AM MANAGER LVN Gender Identity Male 05/10/2024 10:00 PM MANAGER LVN Sexual Orientation Straight 05/10/2024 10 :00 PM MANAGER LVN documented as of this encounter Plan of Treatment Upcoming Encounters Date Type Department Care Team (Late st Contact Info) Description 02/05/2025 9:00 AM CDT Telemedicine Department of Family Medicine, [facility], in [address] [phone] Ignacia Figueroa M.D. [address] [place] [phone] Discharge Disposition: Home or Self Care documented as of this encounter Visit Diagnoses Diagnosis Radiculopathy Lumbar documented in this encounter Additional Health Concerns Assessment Noted Time PHQ-9 Depression Total Score: 13 025 12:59 AM CDT documented as of this encounter Care Teams Ip Litigation Associate Relationship Specialty Start Date End Date Ignacia Figueroa M.D. [address] [place] [phone] PCP - General Family Medicine 07/04/24 documented as of this encounter
--- OUTSIDE RECORDS SUMMARY | 2025-01-26 03:19 | XMS_ITS | Clinical Summary ---
Author Organization [employer] Address [address] [place] [address] Care Team Providers Care Printing Gray Cloth Tender Name Role Phone Michele Bradshaw MD Unavailable [phone] Dasha Loera APRN, TRAUMA REGISTRAR Primary Care Provider Unavailable Allergies No known active allergies Medications cyclobenzaprine [...] for Pain. 15 Tablet 06/08/2024 12:24 PM CERTIFIED MEDICAL ASSISTANT 4 Active amitriptyline 25 mg tablet Take [...] Encounters Date Type Department Care Team Description 01/16/2025 Transcribe Orders [address] [place] [address] John Palmer MD 01/14/2025 Orders Only [facility] [address] [place] [address] Bob Walsh PA 1 scan: (1-Ord) XR LUMBAR SPINE 01/11/2025 1:51 PM CDT - 01/11/2025 7:20 PM CDT Emergency [facility] Emergency Department [address] [place] [address] Steven Coreas PA Lumbar disc herniation (Primary [...] on file Legal Sex Male 5:25 AM CERTIFIED MEDICAL ASSISTANT Gender Identity Not on file Sexual Orientation [...] 01/11/2025 1:46 PM CDT Plan of Treatment Upcoming Encounters Date Type Department Care Team (Late st Contact Info) Description 01/29/2025 7:20 AM CDT Office Visit [facility] [address] [place] [phone] John Palmer MD [address] [place] [address] Health Maintenance Due Date Last Done Comments [...] for age 35-44 02/17/2023 COVID-19 vaccine series ( season) 2024 Influenza Vaccine (#1) 2025 04/17/2015, 2011 Procedures Procedure Name Priority Date/Time Associated Diagnosis Comments MR SPINE LUMBAR WWO STAT 01/11/2025 5 :03 PM CDT from Last 3 Months Results * MR Lumbar Spine W/WO if Previous Surgery (01/11/2025 5:03 PM CDT) Anatomical Region Laterality Modality Spine, LUMBAR SPINE Magnetic Res onance 01/11/2025 5:15 PM CDT Narrative 01/11/2025 5:15 PM CDT For Patients: As a result of the Cures Act, medical imaging exams and procedure [...] spinal canal or neural foraminal narrowing. L4-5: Fhje-do-fvmvbeck disc degeneration. Minimal endplate edema. Shallow disc [...] result of the Century Cures Act, medical imagingexams and procedure reports [...] spinal canal or neural foraminal narrowing. L4-5: Flpl-kp-yxdmuoyi disc degeneration. Minimal endplate edema. Shallowdisc bulge. [...] recess with probable impingement of traversing right Y8vacpk roots. Moderate bilateral neural foraminal stenosis. Mild discogenicvertebral body edema. Dictated by Minh Pendleton MD @ 01/11/2025 5:15:01 PM (Electronically Signed) Steven FRANCES MR Final Re sult from Last 3 Months Insurance [facility] Advance Directives * Full Code (Latest Code [...] Preferences, Provider to review later Care Teams Printing Gray Cloth Tender Relationship Specialty Start Date End Date Dasha Loera, SALES PROMOTER, TRAUMA REGISTRAR PCP - General Nurse Practitioner - Family 01/16/25 Michele Bradshaw MD Otolaryngology Surgery - Otolaryngology 10/09/12
--- OUTSIDE RECORDS SUMMARY | 2025-01-26 03:19 | XMS_ITS | Encounter Summary ---
Author Organization [facility] Address [address] [place] [address] Care Team Providers Care Pole Lift Operator Name Role Phone Ignacia Figueroa M.D. Primary Care Provider +1- [phone] Reason for Visit * Reason Onset Date Comments Med Refill 01/14/2025 Encounter Details Date Type Department Care Team (Late st Contact Info) Description 01/14/2025 Refill Department of Family Medicine, [facility], in [address] [phone] Ignacia Figueroa M.D. [address] [place] [phone] Med Refill Social History Tobacco Use Types Packs/Day Years Used Date Smoking Tobacco: Every Day Cigarettes 0.3 15.9 Started: 02/12/2008; Last attempted to quit: 06/07/2022 Passive Smoke Exposure: Current Smokeless Tobacco: Never Alcohol Use Standard Drinks/Week Comments Not Currently 0 (1 standard drink = 0.6 oz pur e alcohol) [facility] Utilities Answer Date Recorded In the past [...] your living situation today? I have a [facility] place to live 05/10/2024 Sex and Gender Information Value Date Recorded Sex Assigned at Male 05/10/2024 10:00 PM CODING SPECIALIST HOME HEALTH Legal Sex Male 6:08 AM CODING SPECIALIST HOME HEALTH Gender Identity Male 05/10/2024 10:00 PM CODING SPECIALIST HOME HEALTH Sexual Orientation Straight 05/10/2024 10 :00 PM CODING SPECIALIST HOME HEALTH documented as of this encounter Plan of Treatment Upcoming Encounters Date Type Department Care Team (Late st Contact Info) Description 02/05/2025 9:00 AM CDT Telemedicine Department of Family Medicine, [facility], in [address] [phone] Ignacia Figueroa M.D. [address] [place] [phone] Discharge Disposition: Home or Self Care documented as of this encounter Visit Diagnoses Not on filedocumented in this encounter Additional Health Concerns Assessment Noted Time PHQ-9 Depression Total Score: 13 025 12:59 AM CDT documented as of this encounter Care Teams Pole Lift Operator Relationship Specialty Start Date End Date Ignacia Figueroa M.D. [address] [place] [phone] PCP - General Family Medicine 07/04/24 documented as of this encounter
--- OUTSIDE RECORDS SUMMARY | 2025-01-26 03:19 | XMS_ITS | Encounter Summary ---
Author Organization [facility] Address [address] [place] [address] Care Team Providers Care Wind Plant Manager Name Role Phone Ignacia Figueroa M.D. Primary Care Provider +1- [phone] Reason for Visit * Reason Comments Med Refill Encounter Details Date Type Department Care Team (Late st Contact Info) Description 01/09/2025 Refill Department of Family Medicine, [facility], in [address] [phone] Sourav Ward P.A.-C., P.A. [address] [place] [phone] Med Refill Social History Tobacco Use Types Packs/Day Years Used Date Smoking Tobacco: Every Day Cigarettes 0.3 15.9 Started: 02/12/2008; Last attempted to quit: 06/07/2022 Passive Smoke Exposure: Current Smokeless Tobacco: Never Alcohol Use Standard Drinks/Week Comments Not Currently 0 (1 standard drink = 0.6 oz pur e alcohol) [facility] Utilities Answer Date Recorded In the [...] your living situation today? I have a [facility] place to live 05/10/2024 Sex and Gender Information Value Date Recorded Sex Assigned at Male 05/10/2024 10:00 PM CASTING MACHINE SET UP OPERATOR Legal Sex Male 6:08 AM CASTING MACHINE SET UP OPERATOR Gender Identity Male 05/10/2024 10:00 PM CASTING MACHINE SET UP OPERATOR Sexual Orientation Straight 05/10/2024 10 :00 PM CASTING MACHINE SET UP OPERATOR documented as of this encounter Plan of Treatment Upcoming Encounters Date Type Department Care Team (Late st Contact Info) Description 02/05/2025 9:00 AM CDT Telemedicine Department of Family Medicine, [facility], in [address] [phone] Ignacia Figueroa M.D. [address] [place] [phone] Discharge Disposition: Home or Self Care documented as of this encounter Visit Diagnoses Not on filedocumented in this encounter Additional Health Concerns Assessment Noted Time PHQ-9 Depression Total Score: 13 025 12:59 AM CDT documented as of this encounter Care Teams Wind Plant Manager Relationship Specialty Start Date End Date Ignacia Figueroa M.D. [address] [place] [phone] PCP - General Family Medicine 07/04/24 documented as of this encounter
--- OUTSIDE RECORDS SUMMARY | 2025-01-26 03:19 | XMS_ITS | Encounter Summary ---
Author Organization [facility] Address [address] [place] [address] Care Team Providers Care Bank Advisor Name Role Phone Ignacia Figueroa M.D. Primary Care Provider +1- [phone] Reason for Visit * Reason Onset Date Comments Med Refill 01/23/2025 Encounter Details Date Type Department Care Team (Late st Contact Info) Description 01/23/2025 Refill Department of Family Medicine, [facility], in [address] [phone] Ignacia Figueroa M.D. [address] [place] [phone] Med Refill Social History Tobacco Use Types Packs/Day Years Used Date Smoking Tobacco: Every Day Cigarettes 0.3 15.9 Started: 02/12/2008; Last attempted to quit: 06/07/2022 Passive Smoke Exposure: Current Smokeless Tobacco: Never Alcohol Use Standard Drinks/Week Comments Not Currently 0 (1 standard drink = 0.6 oz pur e alcohol) [facility] Utilities Answer Date Recorded In the past [...] your living situation today? I have a [facility] place to live 05/10/2024 Sex and Gender Information Value Date Recorded Sex Assigned at Male 05/10/2024 10:00 PM RAILROAD BAGGAGE PORTER Legal Sex Male 6:08 AM RAILROAD BAGGAGE PORTER Gender Identity Male 05/10/2024 10:00 PM RAILROAD BAGGAGE PORTER Sexual Orientation Straight 05/10/2024 10 :00 PM RAILROAD BAGGAGE PORTER documented as of this encounter Plan of Treatment Upcoming Encounters Date Type Department Care Team (Late st Contact Info) Description 02/05/2025 9:00 AM CDT Telemedicine Department of Family Medicine, [facility], in [address] [phone] Ignacia Figueroa M.D. [address] [place] [phone] Discharge Disposition: Home or Self Care documented as of this encounter Visit Diagnoses Diagnosis Radiculopathy Lumbar documented in this encounter Additional Health Concerns Assessment Noted Time PHQ-9 Depression Total Score: 13 025 12:59 AM CDT documented as of this encounter Care Teams Bank Advisor Relationship Specialty Start Date End Date Ignacia Figueroa M.D. [address] [place] [phone] PCP - General Family Medicine 07/04/24 documented as of this encounter
--- OUTSIDE RECORDS SUMMARY | 2025-01-26 03:19 | XMS_ITS | Encounter Summary ---
Author Organization [facility] Address [address] [place] [address] Care Team Providers Care Nutritionist Name Role Phone Ignacia Figueroa M.D. Primary Care Provider +1- [phone] Reason for Visit * Reason Onset Date Comments Med Refill 01/18/2025 Encounter Details Date Type Department Care Team (Late st Contact Info) Description 01/18/2025 Refill Department of Family Medicine, [facility], in [address] [phone] Ignacia Figueroa M.D. [address] [place] [phone] Med Refill Social History Tobacco Use Types Packs/Day Years Used Date Smoking Tobacco: Every Day Cigarettes 0.3 15.9 Started: 02/12/2008; Last attempted to quit: 06/07/2022 Passive Smoke Exposure: Current Smokeless Tobacco: Never Alcohol Use Standard Drinks/Week Comments Not Currently 0 (1 standard drink = 0.6 oz pur e alcohol) [facility] Utilities Answer Date Recorded In the [...] your living situation today? I have a [facility] place to live 05/10/2024 Sex and Gender Information Value Date Recorded Sex Assigned at Male 05/10/2024 10:00 PM SHRIMP PICKER Legal Sex Male 6:08 AM SHRIMP PICKER Gender Identity Male 05/10/2024 10:00 PM SHRIMP PICKER Sexual Orientation Straight 05/10/2024 10 :00 PM SHRIMP PICKER documented as of this encounter Miscellaneous Notes * Telephone Encounter - Haylee Montes De Oca L.PDieterN. - 01/18/2025 7:58 AM CDT Controlled substance renewal for oxycodone 5 mg: NURSING ALERT: - No prescribing plan for this medication Renewal is Not pended due to nursing alerts. Date last prescribed (First fill date if included in last Rx): 01/14/2025 (30) Last provider visit: 08/02/2024 Next provider visit due: scheduled to be seen on 02/05/2025 documented in this encounter Plan of Treatment Upcoming Encounters Date Type Department Care Team (Late st Contact Info) Description 02/05/2025 9:00 AM CDT Telemedicine Department of Family Medicine, [facility], in [address] [phone] Ignacia Figueroa M.D. [address] [place] [phone] Discharge Disposition: Home or Self Care documented as of this encounter Visit Diagnoses Diagnosis Radiculopathy Lumbar documented in this encounter Additional Health Concerns Assessment Noted Time PHQ-9 Depression Total Score: 13 025 12:59 AM CDT documented as of this encounter Care Teams Nutritionist Relationship Specialty Start Date End Date Ignacia Figueroa M.D. [address] [place] [phone] PCP - General Family Medicine 07/04/24 documented as of this encounter
--- OUTSIDE RECORDS SUMMARY | 2025-01-26 03:19 | XMS_ITS | Clinical Summary ---
Author Organization [facility] Address [address] [place] [address] Care Team Providers Care Residential Team Leader Name Role Phone Ignacia Figueroa M.D. Primary Care Provider +1- [phone] Source Comments Patient records contain information from all sites at [facility]. For routine questions regarding patient records, call [phone] during business hours, M-F 8:00 AM - 5:00 PM Central Time. Record requests for emergency care only can be directed to [phone] at any time.[facility] Allergies No known active allergies Medications cyclobenzaprin e (FlexeriL) 10 mg tabletIndicati ons:Pain Low Back Unspecified Take 1 tablet (10 mg total) by mouth 3 (three) times a day as needed for muscle spasms. 30 tablet 06/21/20 24 Active aluminum chloride (Drysol) 20 % external solution Apply 1 Application topically at bedtime. Apply to armpits. 35 mL 11 07/04/19 25 Active hydrOXYzine (Atarax) 25 mg tablet Take 1 tablet (25 mg total) by mouth every 6 (six) hours as needed for anxiety. 30 tablet 3 08/02/19 25 Active DULoxetine (Cymbalta) [address] capsule Take 1 capsule (60 mg total) by mouth daily. 90 capsule 3 08/02/19 25 Active traZODone (DesyreL) 50 mg tablet Take 1-2 tablets (50-100 mg total) by mouth at bedtime as needed for sleep. 90 tablet 3 08/02/19 25 Active ALPRAZolam (Xanax) 1 mg tablet Take 1-2 tablets 30-60 minutes prior to the procedure. 2 tablet 08/02/19 25 Active prazosin (Minipress) 1 mg capsule TAKE 1 CAPSULE BY MOUTH AT BEDTIME. 30 capsule 01/15/20 25 Active oxyCODONE (Roxicodone) 5 mg immediate release tabletIndicati ons:Chronic Pain/Nonacute Pain Take 1 tablet (5 mg total) by mouth every 6 (six) hours as needed for severe pain or score 7-10 of 10 Indication: Chronic Pain/Nonacute Pain. 30 tablet 01/19/20 25 Active prazosin (Minipress) 1 mg capsule Take 1 capsule (1 mg total) by mouth at bedtime. 90 capsule 1 06/14/20 24 025 Discontinued oxyCODONE (Roxicodone) 5 mg immediate release tabletIndicati ons:Chronic Pain/Nonacute Pain Take 1 tablet (5 mg total) by mouth every 6 (six) hours as needed for severe pain or score 7-10 of 10 Indication: Chronic Pain/Nonacute Pain. 30 tablet 01/15/20 25 025 Discontinued oxyCODONE (Roxicodone) 5 mg immediate release tabletIndicati ons:Chronic Pain/Nonacute Pain Take 1 tablet (5 mg total) by mouth every 6 (six) hours as needed for severe pain or score 7-10 of 10 Indication: Chronic Pain/Nonacute Pain. 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 Med Refill 01/18/2025 Refill Department of Family Medicine, [facility], [address] [phone] Ignacia Figueroa M.D. Med Refill (URGENT-patient is out. ) 01/18/2025 Refill Department of [facility], [facility], [address] [phone] Ignacia Figueroa M.D. Med Refill 01/14/2025 Refill Department of [facility] Medicine, [facility], [address] [phone] Ignacia Figueroa M.D. Med Refill 01/09/2025 Refill Department of [facility], [facility], [address] [phone] Sourav Ward P.A.-C., P.A. Med Refill from Last 3 Months [...] = 0.6 oz pur e alcohol) [facility] Utilities Answer Date Recorded In the past 12 months has [employer], gas, oil, or water company threatened to [...] living situation today? I have a [facility] place to live 05/10/2024 Sex and Gender Information Value Date Recorded Sex Assigned at Male 05/10/2024 10:00 PM RECRUITING CONSULTANT Legal Sex Male 6:08 AM RECRUITING CONSULTANT Gender Identity Male 05/10/2024 10:00 PM RECRUITING CONSULTANT Sexual Orientation Straight 05/10/2024 10 :00 PM RECRUITING CONSULTANT Last Filed Vital Signs Vital Sign Reading Time Taken Comments Blood Pressure 117/72 08/02/2024 11:08 AM RECRUITING CONSULTANT Pulse 99 08/02/2024 11:08 AM RECRUITING CONSULTANT Temperature 36.8 C (98.2 F) 08/02/2024 11:08 AM RECRUITING CONSULTANT Respiratory Rate 20 06/21/2024 8:20 AM RECRUITING CONSULTANT Oxygen Saturation 98% 08/02/2024 11:08 AM RECRUITING CONSULTANT Inhaled Oxygen Concentration - - Weight 78 kg (171 lb 15.3 oz) 07/04/2024 1:59 PM RECRUITING CONSULTANT Height 181.5 cm (5' 11.46) 06/21/2024 8:[address] Body Mass Index 23.68 06/21/2024 8:20 AM RECRUITING CONSULTANT Plan of Treatment Upcoming Encounters Date Type Department Care Team (Late st Contact Info) Description 02/05/2025 9:00 AM CDT Telemedicine Department of Family Medicine, [facility], in [address] [phone] Ignacia Figueroa M.D. [address] [place] [phone] Discharge Disposition: Home or Self Care Health Maintenance Due Date Last Done Comments HIV Screening 1988 Hepatitis C Screening 1988 Lipid (Cholesterol) Screening 1988 Hepatitis B Vaccines (1 of 3 - 19+ 3-dose series) 02/17/2007 Pneumococcal vaccine (0-49 years) (1 of 2 - PCV) 02/17/2007 HPV Vaccines (1 - 3-dose SCD M series) 02/17/2015 DTaP,Tdap,and Td Vaccines (2 - Td or Tdap) 09/30/2022 09/30/2012 COVID-19 Vaccine (1 - 2023-2 5 season) 2024 Controlled Substance Agreement 01/14/2025 Controlled Substance Monitoring (UDS) 01/14/2025 Opioid Risk Tool (ORT) 01/14/2025 PEG assessment for Opioid therapy 01/14/2025 Influenza Vaccine (#1) 2025 5, 05/03/2012 Depression Monitoring (PHQ-9) 05/07/2025 01/04/2025 Generalized Anxiety (MANDA-7) 07/27/2025 07/27/2024 Tobacco Cessation counseling 07/27/2025 07/27/2024 Controlled Substance Monitoring (PHQ-9) 01/04/2026 01/04/2025 Depression Monitoring (PHQ-9 for quality tracking) Completed 08/02/2024 IPV Vaccines Aged Out No longer eligi ble based on patient's age to complete this topic Insurance [employer] [facility] Care Teams Residential Team Leader Relationship Specialty Start Date End Date Ignacia Figueroa M.D. [address] [phone] PCP - General Family Medicine 07/04/24
[2025-01-26 03:21] VITALS: BP 122/68; PULSE 85; RESP 18; TEMP 36.7; O2SAT 97; BMI 23.7
--- NOTE | 2025-01-26 03:21 | ED.BACK ---
HPI - Back Pain/Injury General Time Seen by Provider: 03:21 Date Seen: 01/26/25 Chief Complaint: Back Injury/Pain Stated Complaint: lower back pain Time Seen by Provider: 01/26/25 03:25 Source: patient Mode of arrival: ambulatory History of Present Illness HPI Narrative: Jass is a 34-year-old male with a past medical history of lumbar radiculopathy who presents the emergency department for evaluation of low back pain. Patient reports longstanding history of lumbar radiculopathy, status post 2 back surgeries back in 2023 that failed. Patient reports that since December he has been having worsening pain. Patient states that he is scheduled for a steroid injection in the next 1-2 weeks and is also working with [facility] to have another surgery. Patient denies any new trauma or injury. Patient reports ongoing pain in his right low back, right gluteal region, and right leg. Patient reports radiation of the pain down his right leg and stabbing sensation in his calf and his thigh. Patient reports some paresthesias which are typical for him. Patient states that he was unable to get comfortable tonight and unable to sleep. Patient reports initially had worsening symptoms in the middle of December and at that time was told to go to [place] which he did at that time he had an MRI. Patient was treated with OxyContin, Dilaudid, gabapentin, prednisone, and then again was seen in [place] on January 13. Patient states that he recently ran out of his medications on and was trying to make it through the weekend however unable to sleep last night. Patient denies any new or worsening symptoms, no urinary bowel incontinence/retention. Patient reports this is his typical pain, just would like to get comfortable to sleep so he can follow-up outpatient. Denies any fever, chills, chest pain, shortness of breath. No other complaints. Related Data Home Medications ?Medication ?Instructions ?Recorded ?Confirmed duloxetine 60 mg capsule,delayed 60 mg PO DAILY 01/13/25 01/25/25 release prazosin 1 mg capsule 1 mg PO QPM 01/13/25 01/25/25 Previous Rx's ?Medication ?Instructions ?Recorded gabapentin 100 mg capsule 200 mg (2 x 100 mg) PO TID #100 01/13/25 caps gabapentin 100 mg capsule 200 mg (2 x 100 mg) PO TID PRN 01/13/25 #100 caps prednisone 20 mg tablet 40 mg (2 x 20 mg) PO QDAY #10 tabs 01/25/25 Allergies Allergy/AdvReac Type Severity Reaction Status Date / Time No Known Drug Allergies Allergy Verified 01/26/25 03:21 Review of Systems Narrative: Past medical history, past surgical history, medications, allergies, family history, and social history were reviewed with the patient. No additional pertinent items. A medically appropriate review of systems was performed with pertinent positives and negatives noted in HPI, all other systems negative. [facility] Medical History (Updated 01/26/25 @ 05:04 by Aline Beckford MD) Protrusion of lumbar intervertebral disc ?M51.26 - Other intervertebral disc displacement, lumbar region (ICD-10) Surgical History History of lumbar surgery ?Z98.890 - Other specified postprocedural states (ICD-10) Social History Smoking Status: Never smoker Do you use any of these nicotine containing products: None Second hand tobacco smoke exposure: No How often do you have a drink containing alcohol: never How often do you have six or more drinks on one occasion: Never AUDIT-C Alcohol total score: 0 Non-prescribed substance use: marijuana (any form) service: No Exam Narrative: Exam Narrative: General: Afebrile, in distress secondary to pain, kneeling on the floor HEENT: Normocephalic, atraumatic, conjunctiva normal. MMM Neck: non-tender, supple Cardio: regular rate. regular rhythm Resp: Normal work of breathing, no respiratory distress, lungs clear bilaterally, no wheezing, rhonchi, rales Chest/Back: no visual signs of trauma, no midline tenderness, no CVA tenderness, patient reports right lower lumbar paraspinal tenderness, gluteal tenderness which radiates down his right leg Abdomen: soft, non distension, no tenderness, no peritoneal signs Neuro: alert and fully oriented. CN II-XII intact. Grossly normal strength and sensation in all extremities. MSK: No obvious deformity Integumentary/Skin: no rash visualized, normal color Psych: normal affect, normal behavior Const: Vital Signs, click to edit/add: Vital Signs - 24 hr 01/26/25 03:21 01/26/25 04:08 01/26/25 04:11 Temperature 98.0 F 98.0 F Pulse Rate [Pulse Oximeter] 85 Respiratory Rate 18 Blood Pressure [Le ft Upper Arm] 122/68 Pulse Oximetry 97 98 Oxygen Delivery Me thod Room Air Course Vital Signs Vital signs: Initial Vital Signs Temperature 98.0 F 01/26/25 03:21 Temperature Source Temporal Artery Scan 01/26/25 03:21 Pulse Rate 85 01/26/25 03:21 Pulse Rhythm Regular 01/26/25 03:21 Respiratory Rate 18 01/26/25 03:21 Blood Pressure 122/68 01/26/25 03:21 Blood Pressure Mean 86 01/26/25 03:21 Blood Pressure Position Standing 01/26/25 03:21 Pulse Oximetry 97 01/26/25 03:21 Oxygen Delivery Method Room Air 01/26/25 03:21 Vital Signs Temperature 98.0 F 01/26/25 03:21 Pulse Rate 85 01/26/25 03:21 Respiratory Rate 18 01/26/25 03:21 Blood Pressure 122/68 01/26/25 03:21 Pulse Oximetry 97 01/26/25 03:21 Oxygen Delivery Method Room Air 01/26/25 03:21 Temperature 98.0 F 01/26/25 04:08 Pulse Rate 85 01/26/25 03:21 Respiratory Rate 18 01/26/25 03:21 Blood Pressure 122/68 01/26/25 03:21 Pulse Oximetry 98 01/26/25 04:11 Oxygen Delivery Method Room Air 01/26/25 03:21 Medications Administered Medications: Discontinued Medications Generic Name Dose Route Start Last Admin Trade Name Freq PRN Reason Stop Dose Admin Hydromorphone HCl 1 mg 01/26/25 04:03 01/26/25 04:10 Hydromorphone 0.5 Mg/0.5 Ml Inj IVP 01/26/25 04:04 1 mg ONCE ONE Administration Ketorolac Tromethamine 15 mg 01/26/25 04:03 01/26/25 04:08 Ketorolac 15 Mg/Ml Inj IVP 01/26/25 04:04 15 mg ONCE ONE Administration MDM - Back Pain/Injury MDM Narrative Medical decision making narrative: Jass is a 34-year-old male with a past medical history of lumbar radiculopathy who presents the emergency department for evaluation of low back pain. Upon arrival patient is nontoxic appearing, afebrile, in severe distress secondary to pain. Patient is kneeling on the floor due to severe pain. Patient denies any red flags, no fever, no urinary/bowel retention or incontinence, no new focal weakness. Initially difficult to examine due to patient's severe pain. Patient reports this is similar to his ongoing pain, just ran out of his pain medications and would like to try to get some rest last sleep tonight and will follow-up with his providers early this week. I reviewed patient's records including recent visit at [place] as well as [place] and MRI findings. Patient does have follow-up for spinal injection and follow-up with his surgeon.. Patient was treated with a dose of IV Toradol, IV Dilaudid and on re-evaluation patient reports significant improvement of symptoms and states he would like to try to go home and get some sleep. I will discharge patient with a short course of oxycodone to get him through the weekend also recommend Tylenol, ibuprofen, and continuation of his gabapentin. Strict return precautions discussed, red flags discussed. Patient understands and agrees with the plan. Discharge Plan Discharge Clinical Impression: Low back pain, Lumbar radiculopathy Patient Disposition: Home, Self-Care Condition: Improved Additional Instructions: Please follow-up with your primary care provider in the next 2-3 days for further evaluation, follow-up, medication refill. We also recommend following up with your surgeon regarding your spinal injection as well as possibly moving appear surgery and ongoing pain management. Please alternate taking Tylenol 1000 mg and ibuprofen 600 mg every 6 hours as needed for pain. Please take oxycodone as needed for severe pain. Return to the emergency department if you develop severe pain, urinary or bowel incontinence, weakness, or any worsening symptoms. It was a pleasure taking care of you today. We hope you feel better soon. Prescriptions: No Action prednisone 20 mg tablet 40 mg PO QDAY Qty: 10 0RF Rx Instructions: Take 2 tabs PO QAM x 5 days prazosin 1 mg capsule 1 mg PO QPM duloxetine 60 mg capsule,delayed release(DR/EC) 60 mg PO DAILY gabapentin 100 mg capsule 200 mg PO TID Qty: 100 0RF Rx Instructions: Can increase to 300mg dosing over 3 days gabapentin 100 mg capsule 200 mg PO TID PRNQty: 100 0RF Rx Instructions: Can increase by 100 mg a day up to 300 mg 3 times a day. Follow Up/Referrals: Provider,Not a Local [Primary Care Provider, Family Practice] Stand Alone Forms: [employer] Info Instructions
[2025-01-26 04:08] VITALS: TEMP 36.7
[2025-01-26 04:11] VITALS: O2SAT 98
[2025-01-26 05:00] VITALS: BP 116/72; PULSE 76; RESP 16; TEMP 36.8; O2SAT 96
== END 2025-01-26 05:20 | disposition home or self-care (01) ==
PROVIDERS: Emergency Provider Emergency Medicine
DX: M54.50 Low back pain, unspecified (principal); M54.16 Radiculopathy, lumbar region; Z79.899 Other long term (current) drug therapy
CPT/HCPCS: 94761; 96374; 96375; 99284; 99285; J1171; J1885

== ENCOUNTER 2025-01-28 16:38 | Emergency (ER) | payer OTHER, SELFPAY ==
--- OUTSIDE RECORDS SUMMARY | 2025-01-28 16:40 | XMS_ITS | Encounter Summary ---
Author Organization [facility] Address [address] [place] [address] Care Team Providers Care Thermometer Tester Name Role Phone Ignacia Figueroa M.D. Primary Care Provider [phone]- [phone] Reason for Visit * Reason Comments Med Refill Encounter Details Date Type Department Care Team (Late st Contact Info) Description 01/09/2025 Refill Department of Family Medicine, [facility], in [address] [phone] Sourav aWrd P.A.-C., P.A. [address] [place] [phone] Med Refill Social History Tobacco Use Types Packs/Day Years Used Date Smoking Tobacco: Every Day Cigarettes 0.3 15.9 Started: 02/12/2008; Last attempted to quit: 06/07/2022 Passive Smoke Exposure: Current Smokeless Tobacco: Never Alcohol Use Standard Drinks/Week Comments Not Currently 0 (1 standard drink = 0.6 oz pur e alcohol) [facility] Utilities Answer Date Recorded In [...] your living situation today? I have a [facility] place to live 05/10/2024 Sex and Gender Information Value Date Recorded Sex Assigned at Male 05/10/2024 10:00 PM MECHANIC Legal Sex Male 6:08 AM MECHANIC Gender Identity Male 05/10/2024 10:00 PM MECHANIC Sexual Orientation Straight 05/10/2024 10 :00 PM MECHANIC documented as of this encounter Plan of Treatment Upcoming Encounters Date Type Department Care Team (Late st Contact Info) Description 02/05/2025 9:00 AM CDT Telemedicine Department of Family Medicine, [facility], in [address] [phone] Ignacia Figueroa M.D. [address] [place] [phone] Discharge Disposition: Home or Self Care documented as of this encounter Visit Diagnoses Not on filedocumented in this encounter Additional Health Concerns Assessment Noted Time PHQ-9 Depression Total Score: 13 025 12:59 AM CDT documented as of this encounter Care Teams Thermometer Tester Relationship Specialty Start Date End Date Ignacia Figueroa M.D. [address] [place] [phone] PCP - General Family Medicine 07/04/24 documented as of this encounter
--- OUTSIDE RECORDS SUMMARY | 2025-01-28 16:40 | XMS_ITS | Clinical Summary ---
Author Organization [facility] Address [address] [place] [address] Care Team Providers Care Data Deliverables Manager Name Role Phone Ignacia Figueroa M.D. Primary Care Provider [phone]- [phone] Source Comments Patient records contain information from all sites at [facility]. For routine questions regarding patient records, call [phone] during business hours, M-F 8:00 AM - 5:00 PM Central Time. Record requests for emergency care only can be directed to [phone] at any time.[facility] Allergies No known active allergies Medications cyclobenzaprin [...] Refill Department of Family Medicine, [facility], in [address] [phone] Ignacia Figueroa M.D. Med Refill 01/18/2025 Refill Department of Family Medicine, [facility], [address] [phone] Ignacia Figueroa M.D. Med Refill (URGENT-patient is out. ) 01/18/2025 Refill Department of [facility], [facility], [address] [phone] Ignacia Figueroa M.D. Med Refill 01/14/2025 Refill Department of [facility] Medicine, [facility], [address] [phone] Ignacia Figueroa M.D. Med Refill 01/09/2025 Refill Department of [facility], [facility], [address] [phone] Sourav Ward P.A.-C., P.A. Med Refill from [...] drink = 0.6 oz pur e alcohol) [facility] Utilities Answer Date Recorded In the past 12 months has [employer], gas, oil, or water company threatened to [...] your living situation today? I have a [facility] place to live 05/10/2024 Sex and Gender Information Value Date Recorded Sex Assigned at Male 05/10/2024 10:00 PM BLANKET BINDER Legal Sex Male 6:08 AM BLANKET BINDER Gender Identity Male 05/10/2024 10:00 PM BLANKET BINDER Sexual Orientation Straight 05/10/2024 10 :00 PM BLANKET BINDER Last Filed Vital Signs Vital Sign Reading Time Taken Comments Blood Pressure 117/72 08/02/2024 11:08 AM BLANKET BINDER Pulse 99 08/02/2024 11:08 AM BLANKET BINDER Temperature 36.8 C (98.2 F) 08/02/2024 11:08 AM BLANKET BINDER Respiratory Rate 20 06/21/2024 8:20 AM BLANKET BINDER Oxygen Saturation 98% 08/02/2024 11:08 AM BLANKET BINDER Inhaled Oxygen Concentration - - Weight 78 kg (171 lb 15.3 oz) 07/04/2024 1:59 PM BLANKET BINDER Height 181.5 cm (5' 11.46) 06/21/2024 8:[address] Body Mass Index 23.68 06/21/2024 8:20 AM BLANKET BINDER Plan of Treatment Upcoming Encounters Date Type Department Care Team (Late st Contact Info) Description 02/05/2025 9:00 AM CDT Telemedicine Department of Family Medicine, [facility], in [address] [phone] Ignacia Figueroa M.D. [address] [place] [phone] Discharge Disposition: Home or Self Care Health [...] patient's age to complete this topic Insurance [employer] [facility] Care Teams Data Deliverables Manager Relationship Specialty Start Date End Date Ignacia Figueroa M.D. [id number] [phone] PCP - General Family Medicine 07/04/24
--- OUTSIDE RECORDS SUMMARY | 2025-01-28 16:40 | XMS_ITS | Clinical Summary ---
Author Organization [facility] Address [address] [place] [address] Care Team Providers Care Backwinder Name Role Phone Michele Bradshaw MD Unavailable [phone] Dasha Loera APRN, GLASS BLOWER HELPER Primary Care Provider Unavailable Allergies No known active allergies Medications cyclobenzaprine (FLEXERIL) 5 mg tabletIndicatio ns:Chronic midline low back pain with right-sided sciatica Take 1 Tablet (5 mg) by mouth at bedtime if needed for Muscle Spasm. 20 Tablet 03/13/20 21 Active ibuprofen (ADVIL; MOTRIN) 600 mg tabletIndicatio ns:Acute right-sided low back pain with right-sided sciatica,Chroni c midline low back pain with right-sided sciatica Take 1 Tablet (600 mg) by mouth every 6 hours if needed for Pain. Maximum of 3200 mg in 24 hours. 30 Tablet 2 03/13/20 21 Active acetaminophen (TYLENOL) 325 mg tabletIndicatio ns:Herniated nucleus pulposus, L5-S1 Take 3 Tablets (975 mg) by mouth every 6 hours. Max acetaminophen dose: 4000mg in 24 hrs. 02/09/20 24 Active ibuprofen (ADVIL; MOTRIN) 200 mg tabletIndicatio ns:Herniated nucleus pulposus, L5-S1 Take 2 Tablets (400 mg) by mouth every 4 hours if needed for Pain. 02/09/20 24 Active oxyCODONE (ROXICODONE) 5 mg immediate release tabletIndicatio ns:Herniated nucleus pulposus, L5-S1 Take 1 Tablet (5 mg) by mouth every 4 hours if needed for Pain. 15 Tablet 02/09/2024 12:21 PM CDT 02/09/20 24 Active acetaminophen (TYLENOL) 325 mg tabletIndicatio ns:Herniated nucleus pulposus, L5-S1 Take 3 Tablets (975 mg) by mouth every 6 hours. Max acetaminophen dose: 4000mg in 24 hrs. 06/08/20 24 Active ibuprofen (ADVIL; MOTRIN) 200 mg tabletIndicatio ns:Herniated nucleus pulposus, L5-S1 Take 2 Tablets (400 mg) by mouth every 4 hours if needed for Pain. 06/08/20 24 Active oxyCODONE (ROXICODONE) 5 mg immediate release tabletIndicatio ns:Herniated nucleus pulposus, L5-S1 Take 1 Tablet (5 mg) by mouth every 4 hours if needed for Pain. 15 Tablet 06/08/2024 12:24 PM COMMISSARY SUPERINTENDENT 06/08/20 24 Active amitriptyline 25 mg tablet Take 25 mg by mouth. 04/17/20 24 025 Active pregabalin (Lyrica) 25 mg capsule Active oxyCODONE (ROXICODONE) 5 mg immediate release tabletIndicatio ns:Lumbar disc herniation,Radi culopathy, unspecified spinal region Take 1 Tablet (5 mg) by mouth every 6 hours if needed for Pain. 8 Tablet 01/11/2025 7:31 PM CDT 01/12/20 25 Active methylPREDNISol one (MEDROL DOSEPAK) 4 mg tabletIndicatio ns:Lumbar disc herniation,Radi culopathy, unspecified spinal region Take by mouth as instructed per packaging. 21 Tablet 01/11/2025 7:31 PM CDT 01/12/20 25 Active DULoxetine (CYMBALTA) 20 mg Delayed-release capsule Take 20 mg by mouth once daily. 01/27/20 24 025 prazosin (MINIPRESS) 1 mg capsule Take 1 mg by mouth. 01/27/20 24 025 Active Problems Problem Noted Date Diagnosed Date recurrent herniated nucleus pulposus L5-S1 02/08 Encounters Date Type Department Care Team Description 01/16/2025 Transcribe Orders [facility] [address] [place] [address] John Palmer MD 01/14/2025 Orders Only [facility] [address] [address] Bob Walsh PA 1 scan: (1-Ord) XR LUMBAR SPINE 01/11/2025 1:51 PM CDT - 01/11/2025 7:20 PM CDT Emergency [facility] Emergency Department [address] [place] [address] Steven Coreas PA Lumbar disc herniation (Primary [...] on file Legal Sex Male 5:25 AM COMMISSARY SUPERINTENDENT Gender Identity Not on file Sexual Orientation [...] Description 01/29/2025 7:20 AM CDT Office Visit [facility] [address] [place] [phone] John Palmer MD [address] [place] [address] Health Maintenance Due Date Last Done Comments [...] spinal canal or neural foraminal narrowing. L4-5: Hige-im-zgonqvrw disc degeneration. Minimal endplate edema. Shallow disc [...] For Patients: As a result of the 21st Century Cures Act, medical imagingexams and procedure [...] spinal canal or neural foraminal narrowing. L4-5: Ayra-bo-emdswaaq disc degeneration. Minimal endplate edema. Shallowdisc bulge. [...] recess with probable impingement of traversing right [id number] roots. Moderate bilateral neural foraminal stenosis. Mild discogenicvertebral body edema. Dictated by Minh Pendleton MD @ 01/11/2025 5:15:01 PM (Electronically Signed) Steven FRANCES MR Final Re sult from Last 3 Months Insurance [facility] SHARED [employer] Advance Directives * Full [...] Preferences, Provider to review later Care Teams Backwinder Relationship Specialty Start Date End Date Dasha Loera, MARKET SALES MANAGER, GLASS BLOWER HELPER PCP - General Nurse Practitioner - Family 01/16/25 Michele Bradshaw MD Otolaryngology Surgery - Otolaryngology 10/09/12
--- OUTSIDE RECORDS SUMMARY | 2025-01-28 16:40 | XMS_ITS | Encounter Summary ---
Author Organization [facility] Address [address] [place] [address] Care Team Providers Care Wood Heel Back Liner Name Role Phone Ignacia Figueroa M.D. Primary Care Provider [phone]- [phone] Reason for Visit * Reason Onset Date Comments Med Refill 01/18/2025 Encounter Details Date Type Department Care Team (Late st Contact Info) Description 01/18/2025 Refill Department of Family Medicine, [facility], in [address] [phone] Ignacia Figueroa M.D. [address] [place] [phone] Med Refill Social History Tobacco Use Types Packs/Day Years Used Date Smoking Tobacco: Every Day Cigarettes 0.3 15.9 Started: 02/12/2008; Last attempted to quit: 06/07/2022 Passive Smoke Exposure: Current Smokeless Tobacco: Never Alcohol Use Standard Drinks/Week Comments Not Currently 0 (1 standard drink = 0.6 oz pur e alcohol) [facility] Utilities Answer Date Recorded In the [...] your living situation today? I have a [facility] place to live 05/10/2024 Sex and Gender Information Value Date Recorded Sex Assigned at Male 05/10/2024 10:00 PM MASH FILTER PRESS OPERATOR Legal Sex Male 6:08 AM MASH FILTER PRESS OPERATOR Gender Identity Male 05/10/2024 10:00 PM MASH FILTER PRESS OPERATOR Sexual Orientation Straight 05/10/2024 10 :00 PM MASH FILTER PRESS OPERATOR documented as of this encounter Miscellaneous Notes [...] AM CDT Telemedicine Department of Family Medicine, [facility], in [address] [phone] Ignacia Figueroa M.D. [address] [place] [phone] Discharge Disposition: Home or Self Care documented as of this encounter Visit Diagnoses Diagnosis Radiculopathy Lumbar documented in this encounter Additional Health Concerns Assessment Noted Time PHQ-9 Depression Total Score: 13 025 12:59 AM CDT documented as of this encounter Care Teams Wood Heel Back Liner Relationship Specialty Start Date End Date Ignacia Figueroa M.D. [address] [place] [phone] PCP - General Family Medicine 07/04/24 documented as of this encounter
--- OUTSIDE RECORDS SUMMARY | 2025-01-28 16:40 | XMS_ITS | Encounter Summary ---
Author Organization [facility] Address [address] [place] [address] Care Team Providers Care Drycleaner Name Role Phone Ignacia Figueroa M.D. Primary Care Provider +1- [phone] Reason for Visit * Reason Onset Date Comments Med Refill 01/18/2025 URGENT-patient i s out. Encounter Details Date Type Department Care Team (Late st Contact Info) Description 01/18/2025 Refill Department of Family Medicine, [facility], in [address] [phone] Ignacia Figueroa M.D. [address] [place] [phone] Med Refill (URGENT-patient is out. ) Social History Tobacco Use Types Packs/Day Years Used Date Smoking Tobacco: Every Day Cigarettes 0.3 15.9 Started: 02/12/2008; Last attempted to quit: 06/07/2022 Passive Smoke Exposure: Current Smokeless Tobacco: Never Alcohol Use Standard Drinks/Week Comments Not Currently 0 (1 standard drink = 0.6 oz pur e alcohol) [facility] Utilities Answer Date Recorded In the past 12 months has [employer], gas, oil, or water company threatened [...] your living situation today? I have a [facility] place to live 05/10/2024 Sex and Gender Information Value Date Recorded Sex Assigned at Male 05/10/2024 10:00 PM LEGAL ARCHIVIST Legal Sex Male 6:08 AM LEGAL ARCHIVIST Gender Identity Male 05/10/2024 10:00 PM LEGAL ARCHIVIST Sexual Orientation Straight 05/10/2024 10 :00 PM LEGAL ARCHIVIST documented as of this encounter Plan of Treatment Upcoming Encounters Date Type Department Care Team (Late st Contact Info) Description 02/05/2025 9:00 AM CDT Telemedicine Department of Family Medicine, [facility], in [address] [phone] Ignacia Figueroa M.D. [address] [place] [phone] Discharge Disposition: Home or Self Care documented as of this encounter Visit Diagnoses Diagnosis Radiculopathy Lumbar documented in this encounter Additional Health Concerns Assessment Noted Time PHQ-9 Depression Total Score: 13 025 12:59 AM CDT documented as of this encounter Care Teams Drycleaner Relationship Specialty Start Date End Date Ignacia Figueroa M.D. [address] [place] [phone] PCP - General Family Medicine 07/04/24 documented as of this encounter
--- OUTSIDE RECORDS SUMMARY | 2025-01-28 16:40 | XMS_ITS | Encounter Summary ---
Author Organization [facility] Address [address] [place] [address] Care Team Providers Care Auto Mechanic Apprentice Name Role Phone Ignacia Figueroa M.D. Primary Care Provider [phone] Reason for Visit * Reason Onset Date Comments Med Refill 01/23/2025 Encounter Details Date Type Department Care Team (Late st Contact Info) Description 01/23/2025 Refill Department of Family Medicine, [facility], in [address] [phone] Ignacia Figueroa M.D. [address] [place] [phone] Med Refill Social History Tobacco Use Types Packs/Day Years Used Date Smoking Tobacco: Every Day Cigarettes 0.3 15.9 Started: 02/12/2008; Last attempted to quit: 06/07/2022 Passive Smoke Exposure: Current Smokeless Tobacco: Never Alcohol Use Standard Drinks/Week Comments Not Currently 0 (1 standard drink = 0.6 oz pur e alcohol) [facility] Utilities Answer Date Recorded In [...] your living situation today? I have a [facility] place to live 05/10/2024 Sex and Gender Information Value Date Recorded Sex Assigned at Male 05/10/2024 10:00 PM INSTRUMENTATION TECHNOLOGIST Legal Sex Male 6:08 AM INSTRUMENTATION TECHNOLOGIST Gender Identity Male 05/10/2024 10:00 PM INSTRUMENTATION TECHNOLOGIST Sexual Orientation Straight 05/10/2024 10 :00 PM INSTRUMENTATION TECHNOLOGIST documented as of this encounter Plan of Treatment Upcoming Encounters Date Type Department Care Team (Late st Contact Info) Description 02/05/2025 9:00 AM CDT Telemedicine Department of Family Medicine, [facility], in [address] [phone] Ignacia Figueroa M.D. [address] [place] [phone] Discharge Disposition: Home or Self Care documented as of this encounter Visit Diagnoses Diagnosis Radiculopathy Lumbar documented in this encounter Additional Health Concerns Assessment Noted Time PHQ-9 Depression Total Score: 13 025 12:59 AM CDT documented as of this encounter Care Teams Auto Mechanic Apprentice Relationship Specialty Start Date End Date Ignacia Figueroa M.D. [address] [place] [phone] PCP - General Family Medicine 07/04/24 documented as of this encounter
--- OUTSIDE RECORDS SUMMARY | 2025-01-28 16:40 | XMS_ITS | Encounter Summary ---
Author Organization [facility] Address [address] [place] [address] Care Team Providers Care Cloth Bleaching Range Tender Name Role Phone Ignacia Figueroa M.D. Primary Care Provider [phone]- [phone] Reason for Visit * Reason Onset Date Comments Med Refill 01/14/2025 Encounter Details Date Type Department Care Team (Late st Contact Info) Description 01/14/2025 Refill Department of Family Medicine, [facility], in [address] [phone] Ignacia Figueroa M.D. [address] [place] [phone] Med Refill Social History Tobacco Use Types Packs/Day Years Used Date Smoking Tobacco: Every Day Cigarettes 0.3 15.9 Started: 02/12/2008; Last attempted to quit: 06/07/2022 Passive Smoke Exposure: Current Smokeless Tobacco: Never Alcohol Use Standard Drinks/Week Comments Not Currently 0 (1 standard drink = 0.6 oz pur e alcohol) [facility] Utilities Answer Date Recorded In [...] living situation today? I have a [facility] place to live 05/10/2024 Sex and Gender Information Value Date Recorded Sex Assigned at Male 05/10/2024 10:00 PM DAIRY MANAGEMENT SPECIALIST Legal Sex Male 6:08 AM DAIRY MANAGEMENT SPECIALIST Gender Identity Male 05/10/2024 10:00 PM DAIRY MANAGEMENT SPECIALIST Sexual Orientation Straight 05/10/2024 10 :00 PM DAIRY MANAGEMENT SPECIALIST documented as of this encounter Plan of Treatment Upcoming Encounters Date Type Department Care Team (Late st Contact Info) Description 02/05/2025 9:00 AM CDT Telemedicine Department of Family Medicine, [facility], in [address] [phone] Ignacia Figueroa M.D. [address] [place] [phone] Discharge Disposition: Home or Self Care documented as of this encounter Visit Diagnoses Not on filedocumented in this encounter Additional Health Concerns Assessment Noted Time PHQ-9 Depression Total Score: 13 025 12:59 AM CDT documented as of this encounter Care Teams Cloth Bleaching Range Tender Relationship Specialty Start Date End Date Ignacia Figueroa M.D. [address] [place] [phone] PCP - General Family Medicine 07/04/24 documented as of this encounter
[2025-01-28 16:41] VITALS: BP 132/65; PULSE 98; RESP 20; TEMP 36.5; O2SAT 99; BMI 23.1
--- NOTE | 2025-01-28 18:06 | ED_ITS ---
HPI - Back Pain/Injury General Chief Complaint: Back Injury/Pain Stated Complaint: Lower back pain Time Seen by Provider: 01/28/25 17:51 History of Present Illness HPI Narrative: This patient comes in with severe low back pain radiating down his right leg. He has a history of lumbar radiculopathy and states that he had 2 surgeries last calendar year. During that time he was taking oxycodone but has been off of it until the last couple weeks when his back pain is now flared up again. He does have an appointment tomorrow with the spine clinic here and is due to get a steroid injection into his low back. He was seen here 2 days ago in the emergency department and did receive IV doses of pain meds and prescription for some tablets of oxycodone. He has run out of these medicines and comes back in at this time. He does not report any new injury or strenuous activity to trigge r worsening symptoms. Related Data Home Medications ?Medication ?Instructions ?Recorded ?Confirmed duloxetine 60 mg capsule,delayed 60 mg PO DAILY 01/25/25 release prazosin 1 mg capsule 1 mg PO QPM 01/13/25 5 Previous Rx's ?Medication ?Instructions ?Recorded gabapentin 100 mg capsule 200 mg (2 x 100 mg) PO TID # 100 01/13/25 caps gabapentin 100 mg capsule 200 mg (2 x 100 mg) PO TID P RN 01/13/25 #100 caps prednisone 20 mg tablet 40 mg (2 x 20 mg) PO QDAY #1 0 tabs 01/25/25 hydrocodone 5 mg-acetaminophen 325 1 tab PO Q4-6H PRN pain #20 tabs 01/28/25 mg tablet ketorolac 10 mg tablet 10 mg PO TID 5 days #15 tabs 01/28/25 tizanidine 4 mg capsule (Zanaflex) 4 mg PO TID PRN mus corey spasticity 01/28/25 #20 caps Allergies Allergy/AdvReac Type Severity Reaction Status Date / Time No Known Drug Allergies Allergy Verified 01/26/25 03:21 Review of Systems Status of ROS: Reports: 10 or more systems reviewed and unremarkable except as noted in History and below Narrative: Constitutional: No fevers, no weight gain or loss. Eyes: No discharge. No vision changes. HENT: No congestion, no sore throat, no ear pain. Cardiovascular: No chest pain, no palpitations. Respiratory: No shortness of breath, no wheezes, no cough. Gastrointestinal: No abdominal pain, no vomiting, no diarrhea. Genitourinary: No dysuria, no hematuria. Musculoskeletal: Normal range of motion. Low back pain as described above. Skin: No rashes, no pruritis. Neurological: No dizziness, weakness, sensory change, speech change. Endo/Heme/Allergies: No bruising or bleeding. No polydipsia. Pysch: no suicidality, no anxiety, no insomnia. All other systems reviewed and are negative. [facility] Medical History (Updated 01/28/25 @ 18:11 by Hayden Bergeron MD) Protrusion of lumbar intervertebral disc ?M51.26 - Other intervertebral disc displacement, lumbar region (ICD-10) Surgical History History of lumbar surgery ?Z98.890 - Other specified postprocedural states (ICD-10) Social History Smoking Status: Never smoker Do you use any of these nicotine containing products: None Second hand tobacco smoke exposure: No How often do you have a drink containing alcohol: never How often do you have six or more drinks on one occasion: Never AUDIT-C Alcohol total score: 0 Non-prescribed substance use: marijuana (any form) service: No Exam Narrative: Exam Narrative: Constitutional: Well-developed, well-nourished, no acute distress. HEENT: Normocephalic, atraumatic. Neck: Normal range of motion. Nontender. Supple. Heart: Intact distal pulses. Lungs: No chest discomfort. No wheezes, rhonchi, or rales. Abdomen: Nontender. Back: Severe low back pain radiating down his right leg. Extremities: Normal range of motion. No injury. Skin: Intact. No rash. Warm. No erythema or pallor. Neurologic: No altered sensation. No weakness. Alert and oriented. Psychiatric: No suicidality. No anxiety or depression. No insomnia. Nursing notes and vitals signs are reviewed. Const: Vital Signs, click to edit/add: Vital Signs - 24 hr 01/28/25 16:41 Temperature 97.7 F Pulse Rate [Pulse Oximeter] 98 Respiratory Rate 20 Blood Pressure [Ri ght Upper Arm] 132/65 Pulse Oximetry 99 Oxygen Delivery Me thod Room Air Course Vital Signs Vital signs: Initial Vital Signs Temperature 97.7 F 01/28/25 16:41 Temperature Source Temporal Artery Scan 01/28/25 16:41 Pulse Rate 98 01/28/25 16:41 Respiratory Rate 20 01/28/25 16:41 Blood Pressure 132/65 01/28/25 16:41 Blood Pressure Mean 87 01/28/25 16:41 Blood Pressure Position Sitting 01/28/25 16:41 Pulse Oximetry 99 01/28/25 16:41 Oxygen Delivery Method Room Air 01/28/25 16:41 Vital Signs Temperature 97.7 F 01/28/25 16:41 Pulse Rate 98 01/28/25 16:41 Respiratory Rate 20 01/28/25 16:41 Blood Pressure 132/65 01/28/25 16:41 Pulse Oximetry 99 01/28/25 16:41 Oxygen Delivery Method Room Air 01/28/25 16:41 Temperature 97.7 F 01/28/25 16:41 Pulse Rate 98 01/28/25 16:41 Respiratory Rate 20 01/28/25 16:41 Blood Pressure 132/65 01/28/25 16:41 Pulse Oximetry 99 01/28/25 16:41 Oxygen Delivery Method Room Air 01/28/25 16:41 MDM - Back Pain/Injury MDM Narrative Medical decision making narrative: This patient has an established diagnosis of a lumbar radiculopathy. He did have an MRI done last week and is scheduled to have a steroid injection tomorrow. He comes in because of inadequate pain control specially as he has run out of his pain medicines. He is taking gabapentin. He did take a steroid a couple weeks ago. I stated that we do not manage ongoing pain management with narcotics out of the emergency department. He did receive a few tablets from his visit a couple days ago so I did agree to prescribe some [place] along with Toradol and Zanaflex. He does have an appointment with the spine clinic tomorrow and with a primary care physician next week for ongoing management. He is switching from the [facility] into the [facility] for medical care. Discharge Plan Discharge Clinical Impression: Lumbar radiculopathy Patient Disposition: Home w/ Parent or Adult Condition: Stable Additional Instructions: Take medication as prescribed. Follow up with MD appointments as scheduled. Return if worsening. Prescriptions: New hydrocodone-acetaminophen 5-325 mg tablet 1 tab PO Q4-6H PRN (Reason: pain) Qty: 20 0RF ketorolac 10 mg tablet 10 mg PO TID 5 Days Qty: 15 0RF tizanidine [Zanaflex] 4 mg capsule 4 mg PO TID PRN (Reason: muscle spasticity) Qty: 20 0RF No Action prednisone 20 mg tablet 40 mg PO QDAY Qty: 10 0RF Rx Instructions: Take 2 tabs PO QAM x 5 days prazosin 1 mg capsule 1 mg PO QPM duloxetine 60 mg capsule,delayed release(DR/EC) 60 mg PO DAILY gabapentin 100 mg capsule 200 mg PO TID Qty: 100 0RF Rx Instructions: Can increase to 300mg dosing over 3 days gabapentin 100 mg capsule 200 mg PO TID PRNQty: 100 0RF Rx Instructions: Can increase by 100 mg a day up to 300 mg 3 times a day. Follow Up/Referrals: Provider,Not a Local [Primary Care Provider, Family Practice] Stand Alone Forms: MyHealth Info Instructions
== END 2025-01-28 18:27 | disposition home or self-care (01) ==
LOC: ED 18:13
PROVIDERS: Emergency Provider Emergency Medicine Emergency Medical Services
DX: M54.16 Radiculopathy, lumbar region (principal)
CPT/HCPCS: 96372; 99283; 99284; J1171

== ENCOUNTER 2025-01-29 06:51 | Outpatient (CLI) | payer OTHER, SELFPAY | END 2025-01-29 06:52 | disposition home or self-care (01) | LOC: INJ CL 06:51 | PROVIDERS: Visit Provider Family Medicine | DX: M54.16 Radiculopathy, lumbar region (principal); M51.26 Other intervertebral disc displacement, lumbar region | CPT/HCPCS: 64483; J1100; Q9966 ==